=== PATIENT | female | born 1935 | race Caucasian/White ===

== ENCOUNTER 2020-10-20 17:41 | Inpatient (IN) | payer MEDICARE, BC, SELFPAY ==
--- NOTE | ~2020-10-20 | XR_ITS ---
EXAMINATION: XR chest 1V portable EXAM DATE: 10/23/2020 05:45 INDICATION: F/U on atelectasis TECHNIQUE: Portable AP frontal chest x-ray was obtained. Comparison is made to prior examination from 10/21/2020. FINDINGS: Patient has been extubated. The lungs are clear. There are no pleural effusions. The card iomediastinal silhouette is within normal limits. There is no pneumothorax suspected. The bones and soft tissues are unremarkable. Laparotomy theron. IMPRESSION: No acute cardiopulmonary findings. Reviewed, dictated and finalized at location A. ANDRA CONSULTANT
--- NOTE | ~2020-10-20 | CT_ITS ---
EXAMINATION: CT abdomen pelvis wo con DATE: 10/20/2020 20:16 INDICATION: Abdominal pain TECHNIQUE: Computed tomography (CT) of the abdomen and pelvis was performed with 100 mL Omnipaque-350 intravenous contrast. Automated exposure control and iterative reconstruction technique were employe d. The dose-length product was 992.37 mGy-cm. COMPARISON: None FINDINGS: Calcified nodule and associated mild discoid atelectasis at the lingula. Small peripheral groundglass opacity at the dependent right lower lobe which could represent atelectasis, aspiration or pneumonia . Suggestion of scattered mucous plugging in the bilateral lower lobes however determination is somew hat limited by significant respiratory motion. Heart size is normal. Atherosclerotic coronary artery calcific calcification is. No pericardial or pleural effusion. There is small amount of free intraperitoneal gas scattered throughout the abdomen consistent with pe rforated viscus. There is a 7.8 x 5.6 x 2.2 cm loculated fluid collection along the left paracolic gu tter with surrounding inflammatory stranding which is suspicious for a small abscess. The source of t he perforated viscus is unable be definitely identified. There is colonic wall thickening at the sple terrance flexure of the colon suggesting possibility of colitis. There are also multiple diverticula along the sigmoid and descending colon suggesting an additional possibility of perforated diverticulitis. There is fluid throughout multiple loops of nondilated small bowel suggesting a reactive ileus. The a ppendix is not visualized. No pericecal inflammatory change to suggest acute appendicitis. Some of th e free intraperineal gas extends into a small umbilical hernia. There is also a fat-containing spigel sari hernia along the anterolateral right lower quadrant. A few hepatic and splenic calcified calcification is consistent with old granulomatous disease. Gallb ladder, pancreas, bilateral adrenal glands and kidneys are normal. There is scattered calcified ather osclerosis of the aorta and bilateral iliac arteries. Bladder is normal. The uterus is not identified and has likely been surgically resected. Minimal amount of free intraperitoneal fluid in the pelvis. Severe lumbar spondylosis with interspinous process fixation device at L4-L5. There are bridging ost eophytes at multiple levels in the mid to lower thoracic, consistent with diffuse idiopathic skeletal hyperostosis (DISH). IMPRESSION: 1. Free intraperitoneal gas and small likely fluid collection consistent with abscess at the left par acolic gutter suggesting perforated viscus, likely the colon with differential including either perfo rated diverticulitis or focal colitis at the splenic flexure the distribution suggesting possibility of hypotensive ischemia with differential including infection or less likely inflammatory bowel disea se. Dr. Singleton discussed these findings with Dr. Weaver at 8:25 PM. 2. Small peripheral focus of groundglass opacity in the right lower lobe which could be due to pneumo asuncion, atelectasis or less likely aspiration or pulmonary edema. 3. Small umbilical hernia containing gas and fat-containing right-sided spigelian hernia. Reviewed, dictated and finalized at [facility]. PRIVATE DUTY IMPRESSION: 1. Free intraperitoneal gas and small likely fluid collection consistent with a bscess at the left paracolic gutter suggesting perforated viscus, likely the co yovany with differential including either perforated diverticulitis or focal colit is at the splenic flexure the distribution suggesting possibility of hypotensiv e ischemia with differential including infection or less likely inflammatory sergey wel disease. Dr. Singleton discussed these findings with Dr. Weaver at 8:25 PM. 2. Small peripheral focus of
--- NOTE | ~2020-10-20 | US_ITS ---
EXAMINATION: US renal BI DATE: 10/31/2020 10:11 INDICATION: Abnormal kidney function. TECHNIQUE: Multiple ultrasound grayscale images of the kidneys were obtained. COMPARISON: CT abdomen and pelvis 10/20/2020 FINDINGS: The right kidney measures 10.5 x 5.7 x 4.8 cm. The left kidney measures 9.0 x 5.1 x 4.0 cm. The kidne ys demonstrate normal parenchymal echogenicity. There is no hydronephrosis. The bladder is obscured b y bandages. IMPRESSION: 1. Normal kidney sizes. No hydronephrosis. Reviewed, dictated and finalized at location A. D OF EDUCATION SECRETARY
--- NOTE | ~2020-10-20 | XR_ITS ---
EXAMINATION: XR chest ET placement DATE: 10/21/2020 00:57 INDICATION: Intubation. TECHNIQUE: A single frontal view of the chest was obtained. COMPARISON: Chest single view 04/20/2019, CT abdomen and pelvis 10/20/2020 FINDINGS: There is mild atelectasis at left lung base. No pleural effusion or pneumothorax. The heart size is normal. The endotracheal tube tip is 2.5 cm above the jina. The nasogastric tube tip is in the stomach. There are old healed right rib fractures. IMPRESSION: 1. Mild atelectasis at left lung base. Reviewed, dictated and finalized at location A. MOLDER
--- NOTE | ~2020-10-20 | XR_ITS ---
EXAMINATION: XR chest 1V portable DATE: 10/28/2020 09:36 INDICATION: Dyspnea. TECHNIQUE: A single frontal view of the chest was obtained. COMPARISON: Chest single view 10/23/2020, CT abdomen and pelvis 10/20/2020 FINDINGS: There is mild atelectasis in left lower lung zone. No pleural effusion or pneumothorax. The heart size is normal. The nasogastric tube tip is in the stomach. Abdominal skin theron are noted. There are old healed right rib fractures. IMPRESSION: 1. Mild atelectasis in left lower lung zone. Reviewed, dictated and finalized at location A. R AND PULP MILL OPERATOR
--- NOTE | ~2020-10-20 | CT_ITS ---
EXAMINATION: CT abdomen pelvis wo con EXAM DATE: 10/31/2020 13:40 INDICATION: Leukocytosis, fever, post-op Tavo's. TECHNIQUE: Spiral CT of the abdomen and pelvis was performed without contrast. Axial, coronal and s agittal images were reviewed. The dose-length product (DLP) for this examination was 1404.00 mGy-cm. The exposure was tailored according to patient size (auto mA exposure control), and iterative recon struction (ASIR) was used as additional dose reduction technique. There is no prior study for compar selvin. FINDINGS: Interval laparotomy, partial colectomy, Tavo's pouch. Some diverticula along remaining portion of the sigmoid colon. There is a pelvic surgical drain. Scattered foci of gas within the mese ntery in the left side of the abdomen, could be residual postoperative given surgery. Previously seen more diffuse peritoneal gas has resolved. No gas within the liver, no portal venous gas suspected. No organized abscess. The liver, spleen, adrenal glands and pancreas are unremarkable. Gallbladder sludge or poorly calcif ied cholelithiasis. There is no nephrolithiasis or hydronephrosis. The uterus is not identified an d has likely been surgically resected. Vaughn catheter in position with some gas in the bladder. The re is no retroperitoneal or pelvic lymphadenopathy. There is moderate scattered arteriosclerotic di sease. There is a nasogastric tube in position. There is a right common femoral venous line. There is an os katarzyna. No free intraperitoneal gas. The heart is normal in size. There are no pericardial or pleu ral effusions. The interventricular septum is perceptible, suggesting patient is anemic. The lung b ases are unremarkable. There are no osteoblastic or osteolytic lesions identified. IMPRESSION: 1. Interval laparotomy, resolution of diffuse intraperitoneal gas. Scattered foci of uncontained gas within left side of the mesentery. No drainable abscess. 2. Possible cholelithiasis. Reviewed, dictated and finalized at location A. EMS CONSULTANT IMPRESSION: 1. Interval laparotomy, resolution of diffuse intraperitoneal gas. Scattered f oci of uncontained gas within left side of the mesentery. No drainable abscess. 2. Possible cholelithiasis.
--- NOTE | ~2020-10-20 | US_ITS ---
EXAMINATION: US venous doppler LE EXAM DATE: 10/31/2020 10:10 INDICATION: Edema. TECHNIQUE: Multiple grayscale, color flow and Doppler images of the lower extremity deep venous syste ms bilaterally were obtained and reviewed. There is no prior study for comparison. FINDINGS: Right side: The right common femoral, femoral and profunda veins demonstrate normal color flow, respi ratory variation, augmentation and compressibility. Compressibility, color flow confirmed within the right popliteal, posterior tibial, peroneal, and greater saphenous veins. Left side: The left common femoral, femoral and profunda veins demonstrate normal color flow, respira tory variation, augmentation and compressibility. Compressibility, color flow confirmed within the l eft popliteal, posterior tibial, peroneal, and greater saphenous veins. IMPRESSION: 1. No lower extremity deep venous thrombosis bilaterally. Reviewed, dictated and finalized at location A. NG END TRIMMER
--- NOTE | ~2020-10-20 | XR_ITS ---
EXAMINATION: XR Abdomen PICC DATE: 10/28/2020 15:26 INDICATION: PICC line placement TECHNIQUE: Portable AP supine view of the abdomen and pelvis was obtained COMPARISON: CT dated 10/20/2020 FINDINGS: Right lower limb peripherally inserted central venous catheter (PICC) tip at the confluence of the r ight common iliac vein and the caudal-most inferior vena cava. Surgical drain extends into the pelvis and then cephalad with distal tip at the lateral aspect of the left lower quadrant of the abdomen. N asogastric tube tip in proximal side port in the body of the stomach. Multiple skin theron along the midline of the abdomen and pelvis. No dilated loops of bowel to suggest obstruction. IMPRESSION: 1. Right lower limb PICC line with tip at the junction of the right common iliac vein and caudal-most inferior vena cava. Reviewed, dictated and finalized at location A. ED CLOTH TAPER IMPRESSION: 1. Right lower limb PICC line with tip at the junction of the right common ion c vein and caudal-most inferior vena cava.
--- NOTE | ~2020-10-20 | XR_ITS ---
XR abdomen NG/feed tube insert DATE: 10/27/2020 10:35 INDICATION: NG tube placement TECHNIQUE: Portable supine AP view on 10/27/2020 at 1031 hours COMPARISON: 10/20/[address] abdomen FINDINGS: NG tube overlies the distal body of the stomach. Skin theron overlie the right mid and lower abdomen. A catheter overlies the rectum, sigmoid and descending colon. No bowel obstruction is evident. Status post inter-spinous process fixation at L4-5. Degenerative changes of the thoracic and lumbar s pine. Moderate osteopenia. IMPRESSION: NG tube tip at distal body of stomach Catheter overlying left colon Postoperative change Reviewed, dictated and finalized at Location A. Reviewed, dictated and finalized at location A. L OR MOTEL MANAGER
[2020-10-20 18:03] VITALS: BP 102/42; PULSE 58; RESP 18; O2SAT 95
--- NOTE | 2020-10-20 18:39 | PC.NURSE ---
Pt is difficult IV stick. RN at bedside for attempt at ultrasound guided IV placement.
[2020-10-20 18:40] VITALS: BP 102/47; PULSE 60; RESP 18; O2SAT 97
[2020-10-20] MEDS: SODIUM CHLORIDE 0.9% IV 1,000 ML 500 ML IV CONT (18:48)
[2020-10-20] MEDS: MORPHINE SULFATE (*CRX) 2 MG/ML INJ IV PUSH (18:49)
[2020-10-20] MEDS: ONDANSETRON INJ 4 MG/2 ML VIAL IV PUSH (18:49)
--- NOTE | 2020-10-20 19:10 | ED.ABDPAIN ---
HPI - Abdominal Pain General Chief Complaint: Abdominal Pain Stated Complaint: high blood sugar, covid + Time Seen by Provider: 10/20/20 18:08 Source: EMS Mode of arrival: EMS Limitations: dementia History of Present Illness HPI narrative: 85 years old, long-term, brought to the emergency room by ambulance complaining of abdominal pain for the last 2 to 3 days, also history of constipation, last bowel movement over 1 month ago. Covid positive October 11 Related Data Home Medications Medication Instructions Recorded Confirmed amlodipine 10/20/20 Allergies Allergy/AdvReac Type Severity Reaction Status Date / Time Aminoglycosides Allergy Unknown Unknown Verified 10/20/20 18:10 vancomycin Allergy Unknown Unknown Verified 10/20/20 18:10 NKFA Allergy Unknown Unknown Uncoded 10/20/20 18:10 Review of Systems Review of Systems: ROS unobtainable: Yes unobtainable due to medical condition and unobtainable due to mental status PMFSH Past Medical History Medical History (Updated 10/20/20 @ 21:37 by Dillon Weaver MD) A-fib COVID-19 Diabetes mellitus, new onset Hypertension Kidney failure Family History Family History (Updated 04/21/19 @ 11:13 by DOCTOR UNKNOWN) Other Diabetes mellitus Family history of arthritis Family history of malignant neoplasm Hypertension Social History Social History Smoking status: Never smoker Alcohol intake: current Exam Narrative: Exam Narrative: General appearance: Well-developed, well-nourished Skin: Normal color Head: Normocephalic, nontraumatic Eyes: Clear conjunctiva ENT: Oropharynx normal, ears normal, nose normal Neck: Supple, nontender Chest and respiratory: Airway patent, no respiratory distress, no accessory muscle use Heart: Regular rate/rhythm Abdomen: Diffusely tender, distended, diffusely tender Vascular: Normal peripheral pulses, normal capillary refill. 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 Jennings Date: 10/20/20 Time: 21:38 Vital Signs Vital signs: Vital Signs Pulse Rate 58 L 10/20/20 18:03 Respiratory Rate 18 10/20/20 18:03 Blood Pressure 102/42 L 10/20/20 18:03 Pulse Oximetry 95 10/20/20 18:03 Pulse Rate 60 10/20/20 18:40 Respiratory Rate 18 10/20/20 18:40 Blood Pressure 102/47 L 10/20/20 18:40 Pulse Oximetry 97 10/20/20 18:40 MDM - Abdominal Pain MDM Narrative Medical decision making narrative: Patient presents with abdominal pain, constipation. My differential diagnosis as below. Labs, urinalysis, IV fluid, CT abdomen and pelvis with IV contrast ordered. Further plan to follow Differential Diagnosis Differential diagnosis: Likely abdominal pain, acute appendicitis, constipation, diverticulitis, pancreatitis and small bowel obstruction Critical Care Time Critical Care Time Critical Care Time: Yes Total Critical Care Time: 50 Discharge Plan Discharge Clinical Impression: Perforation of colon Acute renal failure Qualifiers: Acute renal failure type: unspecified Qualified Code(s): N17.9 - Acute kidney failure, unspecified Urinary tract infection Qualifiers: Urinary tract infection type: site unspecified Hematuria presence: without hematuria Qualified Code(s): N39.0 - Urinary tract infection, site not specified Patient Disposition: Still a Patient Condition: Guarded Prognosis Additional Instructions: Admit to surgery, Dr. Jennings. Prescriptions: No Action amlodipine 5 mg tablet RF: 0 Follow
[2020-10-20 19:21] LABS: Basophils Percent Auto 0.2 % (0.2-1.2); Eosinophils Absolute Auto 0.1 K/mm3 (0-0.3); Eosinophils Percent Auto 0.4 % (0-4.4); Hematocrit 34.1 % (37.0-47.0); Hemoglobin 10.9 g/dL (12.0-15.0); Immature Granulocyte Absolute 0.11 K/mm3 (0.00-0.031); Immature Granulocyte Percent A 0.7 % (0-0.5); Lymphocytes Absolute Auto 1.07 K/mm3 (0.9-3.2); Lymphocytes Percent Auto 6.7 % (18.3-44.2); Mean Corpuscular Hemoglobin 29.2 pg (26-34); Mean Corpuscular Volume 91.4 fl (80-100); Mean Platelet Volume 10.8 fl (7.4-10.4); Monocytes Absolute Auto 0.6 K/mm3 (0.1-0.6); Monocytes Percent Auto 3.6 % (2.6-8.5); Neutrophils Absolute Auto 14.2 K/mm3 (1.3-6.7); Neutrophils Percent Auto 88.4 % (45.5-73.1); Platelet Count Result 365 k/mm3 (150-375); Red Blood Count 3.73 M/mm3 (4.2-5.4); Red Cell Distribution Width 13.2 % (11.5-14.5); White Blood Count 16.1 K/mm3 (4.5-10.0)
[2020-10-20 19:28] LABS: Add Urine Microscopic? YES; Appearance Urine Turbid (Clear); Bacteria Urine 4+ /hpf; Bilirubin Urine Negative (Negative); Blood Urine 2+ (Negative); Color Urine Yellow (Yellow); Glucose Urine UA Negative (Negative); Ketones Urine Negative (Negative); Leukocyte Esterase Ur 3+ LEU/UL (Negative); Mucus Urine Rare /lpf; Nitrate Urine Negative (Negative); Protein Urine 2+ mg/dL (Negative); RBC Urine >75 /hpf (0-2); Specific Grav Ur 1.015 (1.001-1.035); Urobilinogen Urine Negative mg/dL (<2.0); WBC Clumps Urine Present /HPF; WBC Urine >75 /hpf
[2020-10-20 19:34] LABS: Alanine Aminotransferase 18 U/L (4-35); Albumin Level 3.5 g/dL (3.5-5.1); Alkaline Phosphatase 85 U/L (38-126); Anion Gap 11 mmol/L (8-16); Aspartate Amino Transferase 35 U/L (14-36); Bilirubin,Total 0.5 mg/dL (0.2-1.3); Calcium 9.4 mg/dL (8.4-10.2); Carbon Dioxide 31 mmol/L (22-30); Chloride 98 mmol/L (98-107); Estimated CRCL calculation 9 ml/min; Estimated Glomerular Filt Rate 10; Glucose 191 mg/dL (65-105); Lipase 42 U/L (23-300); Sodium 140 mmol/L (137-145)
[2020-10-20 19:49] LABS: Blood Urea Nitrogen 127 mg/dL (7-17)
[2020-10-20 20:52] LABS: Erythrocyte Sedimentation Rate > 140 mm/hr (0-20)
[2020-10-20 20:55] VITALS: BP 96/67; PULSE 61; RESP 18; O2SAT 60
--- NOTE | 2020-10-20 21:31 | PM.CNGS ---
Assessment and Plan Assessment and plan (1) Perforation of colon: Code(s): K63.1 - Perforation of intestine (nontraumatic) Status: Acute Assessment and Plan: long d/w pt and son, pt verbalizes desire to be comfortable and does not want to proceed c major surgery, son wants to d/w mother prior to making final decision (2) Acute renal failure: Qualifiers: Acute renal failure type: unspecified Qualified Code(s): N17.9 - Acute kidney failure, unspecified Code(s): N17.9 - Acute kidney failure, unspecified Status: Acute Assessment and Plan: cont hydration (3) Urinary tract infection: Qualifiers: Hematuria presence: without hematuria Urinary tract infection type: site unspecified Qualified Code(s): N39.0 - Urinary tract infection, site not specified Code(s): N39.0 - Urinary tract infection, site not specified Status: Acute Assessment and Plan: abx (4) COVID-19: Code(s): U07.1 - COVID-19 Status: Inactive Assessment and Plan: supportive care History of Present Illness Consult details Consult date: 10/20/20 Reason for consult: abdominal pain Requesting physician: Dillon Weaver MD Narrative: Pt is a 85 y/o F c multiple med issues including dementia presenting to the ED c/o severe abd pain. Pt is a poor historian so it is very difficult to attain history. Pt is a resident of an [facility]. Pt reports h/o constipation and reports last BM was 1 mo ago. Review of Systems Review of Systems: ROS unobtainable: Yes unobtainable due to medical condition and unobtainable due to mental status PMFSH Past Medical History Medical History A-fib COVID-19 Diabetes mellitus, new onset Hypertension Kidney failure Family History Family History Other Diabetes mellitus Family history of arthritis Family history of malignant neoplasm Hypertension Social History Social History Smoking status: Never smoker Alcohol intake: current Comments surgical history - lower midline scar noted but no surgical history per pt Meds Home Medications and Allergies Home Medications Medication Instructions Recorded Confirmed Type amlodipine 10/20/20 History Allergies Allergy/AdvReac Type Severity Reaction Status Date / Time Aminoglycosides Allergy Unknown Unknown Verified 10/20/20 18:10 vancomycin Allergy Unknown Unknown Verified 10/20/20 18:10 NKFA Allergy Unknown Unknown Uncoded 10/20/20 18:10 Vital Signs Vital Signs - 24 hr 10/20/20 18:03 10/20/20 18:40 10/20/20 20:55 Pulse Rate 58 L 60 61 Respiratory Rate 18 18 18 Blood Pressure 102/42 L 102/47 L 96/67 L Pulse Oximetry 95 97 60 L Exam Const: General: acute distress moderate, confusion, ill appearing and lethargic Nutritional Appearance: overweight Orientation/consciousness: oriented to person Limitations: altered mental status HENMT: Head: normal to inspection, normocephalic and atraumatic Ears: hearing grossly normal bilaterally General nose exam: Normal external nose present Mouth: Yes dry mucous membranes Eyes: General: appearance normal, both eyes and all related structures Pupils: Equal, round and reactive pupils present EOM: EOMs intact bilaterally Neck: Neck: normal visual inspection and no lymphadenopathy Resp: Effort & Inspection: abnormal respiratory pattern Auscultation: diminished lung sounds Cardio: Jugular venous distension: no JVD Rate: regular rate Rhythm: regular rhythm GI: Inspection: distended, incision and obesity GI Palp: Yes abdominal tenderness, Yes Firmness to palpation present (GI), Yes Tenderness to palpation present (GI), Yes Guarding due to palpation present (GI), Yes Rigid due to palpation and No Hernia present Skin: General skin exam: normal color and no rashes o
--- NOTE | 2020-10-20 22:15 | WPDHPUPDATE1 ---
History and Physical Update Update Date/Time: 10/20/20 22:15 History and Physical has been reviewed, including an updated exam of the patient. There are NO changes in the patient's condition. Risks, benefits, and alternatives have been discussed and questions answered. Patient agrees to proceed with procedure. After discussion with son they have decided to proceed c surgery.
[2020-10-20 22:18] VITALS: BMI 29.3
--- NOTE | 2020-10-20 22:23 | WPDANESEPPF ---
Anes - Initial Pre Proc Eval Procedure: Operation Date: 10/20/20 22:25 Proposed Procedures p Exploratory Laparotomy, Pos Bowel Resec - Swati Jennings MD Date/Time: 10/20/20 22:23 Pre Op Diagnosis: high blood sugar, covid + Patient Data Age: 85 Gender: F Height: 5 ft 2 in Weight: 80 kg Last Vital Signs Pulse 61 10/20/20 20:55 Resp 18 10/20/20 20:55 BP 96/67 L 10/20/20 20:55 Pulse Ox 60 L 10/20/20 20:55 Allergies Allergy/AdvReac Type Severity Reaction Status Date / Time Aminoglycosides Allergy Unknown Unknown Verified 10/20/20 18:10 vancomycin Allergy Unknown Unknown Verified 10/20/20 18:10 NKFA Allergy Unknown Unknown Uncoded 10/20/20 18:10 Home Medications Medication Instructions Recorded Confirmed Type amlodipine 10/20/20 History Laboratory Tests 10/20/20 10/20/20 10/20/20 19:10 19:11 19:11 WBC 16.1 K/mm3 H K/mm3 (4.5-10.0) RBC 3.73 M/mm3 L M/mm3 (4.2-5.4) Hgb 10.9 g/dL L g/dL (12.0-15.0) Hct 34.1 % L % (37.0-47.0) MCV 91.4 fl fl (80-100) MCH 29.2 pg pg (26-34) MCHC 32.0 g/dl g/dl (32-36) RDW 13.2 % % (11.5-14.5) Plt Count 365 k/mm3 k/mm3 (150-375) MPV 10.8 fl H fl (7.4-10.4) Immature Gran % (Auto) 0.7 % H % (0-0.5) Neut % (Auto) 88.4 % H % (45.5-73.1) Lymph % (Auto) 6.7 % L % (18.3-44.2) Andrews % (Auto) 3.6 % % (2.6-8.5) Eos % (Auto) 0.4 % % (0-4.4) Baso % (Auto) 0.2 % % (0.2-1.2) Lymph # (Auto) 1.07 K/mm3 K/mm3 (0.9-3.2) Andrews # (Auto) 0.6 K/mm3 K/mm3 (0.1-0.6) Eos # (Auto) 0.1 K/mm3 K/mm3 (0-0.3) Baso # (Auto) 0.0 K/mm3 K/mm3 (0.0-0.1) Abs Immat Gran (auto) 0.11 K/mm3 H K/mm3 (0.00-0.031) Absolute Neuts (auto) 14.2 K/mm3 H K/mm3 (1.3-6.7) Absolute Nucleated RBC 0.0 K/mm3 K/mm3 (0.0-0.012) Nucleated RBC % 0.0 % % (0.0-0.2) ESR > 140 mm/hr H mm/hr (0-20) Sodium 140 mmol/L mmol/L (137-145) Potassium 5.0 mmol/L mmol/L (3.4-5.0) Chloride 98 mmol/L mmol/L (98-107) Carbon Dioxide 31 mmol/L H mmol/L (22-30) Anion Gap 11 mmol/L mmol/L (8-16) BUN 127 mg/dL H mg/dL (7-17) Creatinine 4.20 mg/dL H mg/dL (0.7-1.0) Estim Creat Clear Calc 9 ml/min ml/min Estimated GFR 10 L (59 - ) Glucose 191 mg/dL H mg/dL (65-105) Calcium 9.4 mg/dL mg/dL (8.4-10.2) Total Bilirubin 0.5 mg/dL mg/dL (0.2-1.3) AST 35 U/L U/L (14-36) ALT 18 U/L U/L (4-35) Alkaline Phosphatase 85 U/L U/L (38-126) Total Protein 7.0 g/dL g/dL (6.3-8.2) Albumin 3.5 g/dL g/dL (3.5-5.1) Lipase 42 U/L U/L (23-300) Urine Color Urine Appearance Urine pH Ur Specific [place] Urine Protein Urine Glucose (UA) Urine Ketones Ur Blood (Man) Urine Nitrate Urine Bilirubin Urine Urobilinogen Leukocyte Esterase Rfl Urine RBC Urine WBC Urine WBC Clumps Urine Bacteria Urine Mucus 10/20/20 19:11 WBC RBC Hgb Hct MCV MCH MCHC RDW Plt Count MPV Immature Gran % (Auto) Neut % (Auto) Lymph % (Auto) Andrews % (Auto) Eos % (Auto) Baso % (Auto) Lymph # (Auto) Andrews # (Auto) Eos # (Auto) Baso # (Auto) Abs Immat Gran (auto) Absolute Neuts (auto) Absolute Nucleated RBC Nucleated RBC % ESR Sodium Potassium Chloride Carbon Dioxide Anion Gap BUN Creatin
[2020-10-20 22:27] VITALS: BP 104/55; PULSE 62; RESP 20; O2SAT 94
[2020-10-20 22:31] VITALS: BP 98/60
[2020-10-21] VITALS (24 sets, daily range): BP systolic 99–125; BP diastolic 44–58; PULSE 52–64; RESP 14–20; TEMP 35.3–37.4; O2SAT 98–100; BMI 29.3
--- NOTE | 2020-10-21 00:01 | PM.PROC ---
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 After adequate induction of general anesthesia the patient was prepped and draped in the normal sterile fashion. A time-out was then done to verify the patient's identity as well as the procedure being performed. I then made a generous midline incision. Noted in the lower portion of the patient's abdomen was a previous hernia repair including mesh in this area. Upon entering the abdominal cavity, there was a gush of air. Upon examining the abdomen especially near the splenic flexure in the left colon there was a large amount of purulence fluid noted. An extensive washout was done at this point. Once this washout was complete, I was able to identify a large amount of inflammation in the left colon. This included the sigmoid colon as well as the distal descending colon. The area of the splenic flexure was also very inflamed and edematous. Given this I did an extensive lysis of adhesions to free up the left colon from its lateral attachments by taking down the white line of Toldt. I also went ahead and mobilized the splenic flexure. Once this was achieved, it was noted that the patient had evidence of acute diverticulitis in the sigmoid colon as well as the distal descending colon. I went ahead and transected the distal sigmoid colon at the peritoneal reflection by creating a window between the mesentery in the distal sigmoid. Once this was done I was able to get a contour stapler and transected this distal sigmoid. I then used a LigaSure device to come up the mesentery staying close to the colon. Went ahead and took the mesentery to just past the splenic flexure. I then went ahead and transected the colon with a 75 JULIO CESAR at this point. This was noted to be likely distal transverse colon. I and prepared the distal transverse colon for creation of a end colostomy. Once done, I made an incision in the skin in the left mid abdomen. This incision was carried down through the subcutaneous tissue to the level of the fascia. I then made a cruciate incision in the level of the fascia. The rectus was split in the direction of its fibers and I final entered the abdominal cavity through the posterior fascia. I was then able to bring up the distal transverse colon through this site. I then copiously irrigated the abdominal cavity. A 15 Japanese drain was left in the left pericolic gutter. No other obvious pathology was seen. I then closed the fascia with looped PDS suture x2. The skin was then closed with skin theron. I then matured the colostomy in the left mid abdomen using interrupted 3 0 Vicryl sutures. The patient tolerated the procedure relatively well and will be left intubated. She will be sent to ICU in critical condition. Anesthesia: GETA Surgeon: Swati Jennings MD Estimated blood loss (mL): 25 Drains: Yes Packing: No Pathology: yes Complications: No immediate complications Condition: critical Disposition: ICU Findings: Perforated diverticulitis in distal descending and proximal sigmoid colon, intra-abdominal abscess
--- NOTE | 2020-10-21 00:30 | ADMGEN ---
This patient, Vanessa Rush, was admitted to Intensive Care Unit-1. Patient/family oriented to hospital policies and general routines including ID bracelet, bed and alarms, visiting hours, pain management, procedures, bathroom and other care routines, personal items, smoking policy, room service/diet, and visiting hours. Information on how to activate the Rapid Response Team has been discussed. Patient/Family are encouraged to report perceived risks to care and to ask questions if they do not understand what they are told or what they should do.
[2020-10-21] MEDS: SODIUM CHLORIDE 0.9% IV 1,000 ML 100 ML IV CONT ×2 (01:00→10:51)
[2020-10-21] MEDS: FENTANYL 2,500MCG/NS250ML(*CRX 2,500 MCG/250 ML BAG IV CONT (01:00)
[2020-10-21 04:10] LABS: Alveolar/Arterial O2 Gradient 137.9 mmHg; Base Excess ABG -3.1 mEq/l (+/-2.0); HCO3 ABG 21.3 mEq/l (22.0-26.0); Oxygen Saturation ABG 98.4 % (95.0-100.0); Oxyhemoglobin 95.7 % THb (90.0-100.0); PCO2 ABG 36.6 mmHg (35.0-45.0); PO2 ABG 122.6 mmHg (80.0-100.0); Total Hemoglobin 15.5 g/dL (12.0-18.0); pH ABG 7.383 (7.350-7.450)
[2020-10-21 04:11] LABS: Carboxyhemoglobin 2.1 % THb (0-2.0); Device VENTILATOR; Fractional Inspired Oxygen 40 %; Methemoglobin ABG 0.3 %THb (0-1.5); Modified Allen's Test Pass; PO2 FiO2 Ratio Arterial Blood 3.07 %; Reduced Hemoglobin 1.9 %THb (0-5.0); Site Drawn LEFT RADIAL
[2020-10-21 04:12] LABS: Arterial Blood Gas PEEP 5 cmH2O; Arterial Blood Gas Vent Mode ASSIST CONTROL; Arterial Blood Gas Ventilator rate 16 /MIN
[2020-10-21 04:13] LABS: Arterial Blood Gas Tidal Volume 300 ml
[2020-10-21 05:24] LABS: Basophils Percent Auto 0.3 % (0.2-1.2); Eosinophils Percent Auto 0.1 % (0-4.4); Hematocrit 33.6 % (37.0-47.0); Hemoglobin 10.8 g/dL (12.0-15.0); Immature Granulocyte Absolute 0.06 K/mm3 (0.00-0.031); Immature Granulocyte Percent A 0.6 % (0-0.5); Lymphocytes Absolute Auto 0.51 K/mm3 (0.9-3.2); Lymphocytes Percent Auto 5.1 % (18.3-44.2); Mean Corpuscular HGB Conc 32.1 g/dl (32-36); Mean Corpuscular Hemoglobin 28.6 pg (26-34); Mean Corpuscular Volume 89.1 fl (80-100); Mean Platelet Volume 10.9 fl (7.4-10.4); Monocytes Absolute Auto 0.4 K/mm3 (0.1-0.6); Monocytes Percent Auto 3.8 % (2.6-8.5); Neutrophils Absolute Auto 8.9 K/mm3 (1.3-6.7); Neutrophils Percent Auto 90.1 % (45.5-73.1); Platelet Count Result 386 k/mm3 (150-375); Red Blood Count 3.77 M/mm3 (4.2-5.4); Red Cell Distribution Width 13.4 % (11.5-14.5); White Blood Count 9.9 K/mm3 (4.5-10.0)
[2020-10-21 05:39] LABS: Anion Gap 14 mmol/L (8-16); Blood Urea Nitrogen 118 mg/dL (7-17); Calcium 8.6 mg/dL (8.4-10.2); Carbon Dioxide 21 mmol/L (22-30); Chloride 104 mmol/L (98-107); Estimated CRCL calculation 11 ml/min; Estimated Glomerular Filt Rate 12; Glucose 278 mg/dL (65-105); Sodium 139 mmol/L (137-145)
--- NOTE | 2020-10-21 09:05 | PM.PNGS ---
Progress Note: A&P Assessment and Plan (1) Perforation of sigmoid colon due to diverticulitis: Code(s): K57.20 - Diverticulitis of large intestine with perforation and abscess without bleeding Status: Acute Assessment and Plan: s/p Hartmans, cont abx, NPO for now, await ostomy fxn (2) Respiratory failure: Code(s): J96.90 - Respiratory failure, unspecified, unspecified whether with hypoxia or hypercapnia Status: Acute Assessment and Plan: wean vent as roberth (3) Kidney failure: Code(s): N19 - Unspecified kidney failure Status: Inactive Assessment and Plan: cont to follow, improving c resus (4) COVID-19: Code(s): U07.1 - COVID-19 Status: Acute Assessment and Plan: supportive care (5) Sepsis: Code(s): A41.9 - Sepsis, unspecified organism Status: Acute Assessment and Plan: cont abx, WBC normalized, HD stable, source controlled, pt also c noted UTI Subjective Subjective Date/Time Seen: 10/21/20 09:05 no acute issues overnight, vented, sedated Review of Systems Review of Systems: ROS unobtainable: Yes unobtainable due to endotracheal tube Exam Const: General: no acute distress and alert Resp: Effort & Inspection: normal respiratory effort Auscultation: diminished lung sounds Cardio: Rate: regular rate Rhythm: regular rhythm GI: Inspection: normal to inspection GI Palp: Yes abdominal tenderness, Yes Soft to palpation and Yes Tenderness to palpation present (GI) Other: soft, sl dist, ostomy viable Objective Data Vital Signs Vital Signs: Vital Signs - 24 hr 10/20/20 18:03 10/20/20 18:40 10/20/20 20:55 Temperature Pulse Rate 58 L 60 61 Respiratory Rate 18 18 18 Blood Pressure 102/42 L 102/47 L 96/67 L Pulse Oximetry 95 97 60 L 10/20/20 22:27 10/20/20 22:31 10/21/20 00:30 Temperature 35.3 C L Pulse Rate 62 57 L Respiratory Rate 20 16 Blood Pressure 104/55 L 98/60 L 105/54 L Pulse Oximetry 94 100 10/21/20 00:38 10/21/20 01:00 10/21/20 02:00 Temperature 35.7 C L Pulse Rate 57 L 52 L 55 L Respiratory Rate 16 16 Blood Pressure 106/50 L 118/58 L Pulse Oximetry 100 100 100 10/21/20 03:00 10/21/20 04:00 10/21/20 06:00 Temperature 36.0 C L 37.4 C 37.2 C Pulse Rate 55 L 59 L 61 Respiratory Rate 16 16 16 Blood Pressure 99/55 L 107/49 L 108/47 L Pulse Oximetry 100 100 100 10/21/20 07:50 10/21/20 08:00 Temperature 37.1 C Pulse Rate 60 55 L Respiratory Rate 18 Blood Pressure 108/47 L Pulse Oximetry 100 99 Intake/Output Intake/Output: Intake & Output 10/18/20 10/19/20 10/20/20 10/21/20 23:59 23:59 23:59 23:59 Intake Total 1050 Output Total 500 350 Balance 550 -350 Meds/Results Medications: Active Medications Generic Name Dose Route Start Last Admin Trade Name Freq PRN Reason Stop Dose Admin Enoxaparin Sodium 40 mg 10/21/20 09:00 Enoxaparin 40 Mg/0.4 Ml Syringe SUB-Q DAILY ALONSO Piperacillin Sod/Tazobactam Sod 2.25 gm in 50 mls @ 100 mls/hr 10/21/20 05:00 10/21/20 08:26 Zosyn 2.25 Gm/D5w 50 Ml IVPB 100 mls/hr Q8H ALONSO Administration Fentanyl Citrate 2,500 mcg in 250 mls @ 5 mls/hr 10/21/20 03:45 10/21/20 01:00 Fentanyl 2,500 Mcg/Ns 250 Ml IV CONT 50 mcg/hr .Q50H ALONSO 5 mls/hr Administration Protocol 50 MCG/HR Sodium Chloride 1,000 mls @ 100 mls/hr 10/21/20 03:50 10/21/20 01:00 Normal Saline Iv IV CONT 100 mls/hr .Q10H ALONSO Administration Lorazepam 2 mg 10/21/20 03:46 Lorazepam Inj (*Crx) 2 Mg/Ml Vial IV PUSH Q2H PRN Anxiety Morphine Sulfate 2 mg 10/20/20 23:58 Morphine Sulfate (*Crx) 2 Mg/Ml Inj IV PUSH Q2H PRN Pain Rated 4-6 Multi-Ingred Cream/Lotion/Oil/Oint 1 applic 10/21/20 09:00 Mineral Oil/Petrolatum,White 1 Applic EACH EYE Q12HR ALONSO Naloxone HCl 0.1 mg 10/20/20 23:58 Naloxone Hcl 0.4 Mg/Ml Vial IV PUSH Q2M PRN Opiate Reversal Ond
[2020-10-21] MEDS: ENOXAPARIN 40 MG/0.4 ML SYRINGE SUB-Q (10:51)
[2020-10-21 11:18] LABS: Glucose Point of Care 311 (65-105)
[2020-10-21] MEDS: PANTOPRAZOLE SODIUM IV 40 MG VIAL IV PUSH (11:20)
[2020-10-21] MEDS: INSULIN ASPART (*BKC) 100 UNITS/ML SUB-Q ×3 (11:20→22:18)
--- NOTE | 2020-10-21 11:51 | WPDCNINT ---
Assessment and Plan Assessment and plan (1) Respiratory failure: Code(s): J96.90 - Respiratory failure, unspecified, unspecified whether with hypoxia or hypercapnia Status: Acute Assessment and Plan: postop respiratory failure - patient currently on 30% FiO2, CMV mode of ventilation - will discontinue all sedation and place patient on SBT and evaluate for extubation - once patient is extubated will encourage incentive spirometry and probably up in chair at some point if okay with surgery (2) Perforation of sigmoid colon due to diverticulitis: Code(s): K57.20 - Diverticulitis of large intestine with perforation and abscess without bleeding Status: Acute Assessment and Plan: status post Perforated sigmoid colon, diverticulitis status post ex lap, extensive lysis of adhesions, 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 on 10/21/2020 - surgery following the patient - will continue adequate pain control (3) COVID-19: Code(s): U07.1 - COVID-19 Status: Acute Assessment and Plan: patient positive for COVID-19 at the detention on 10/11/2020 - continue airborne, droplet, contact isolation /precautions (4) Sepsis: Code(s): A41.9 - Sepsis, unspecified organism Status: Acute Assessment and Plan: patient with perforated sigmoid colon, leukocytosis is improved - continue Zosyn - patient with acute kidney injury, creatinine trending down with fluids - urine output has been adequate, will continue monitor with renal function and urine output (5) DVT prophylaxis: Code(s): Z29.9 - Encounter for prophylactic measures, unspecified Status: Acute Assessment and Plan: Lovenox (6) Acute kidney injury: Code(s): N17.9 - Acute kidney failure, unspecified Status: Acute Assessment and Plan: acute kidney injury most likely related to the perforated viscus, severe sepsis - continue maintenance IV fluids, creatinine trending down - continue monitor renal function, electrolytes and urine output 6 (7) Diabetes: Code(s): E11.9 - Type 2 diabetes mellitus without complications Status: Acute Assessment and Plan: patient hyperglycemic will start patient on Accu-Cheks on high-dose sliding scale insulin - patient on Lantus at the detention - if blood sugars remain elevated will restart patient on a small dose of Lantus as she is currently NPO Additional Plan will discuss with family and updated them with patient's condition and plan of care code status: Full code critical care time spent: 43 minutes Due to a high probability of clinically significant, life threatening deterioration, the patient required my highest level of preparedness to intervene emergently and I personally spent this critical care time directly and personally managing the patient. This critical care time included obtaining a history; examining the patient; pulse oximetry; ordering and review of studies; arranging urgent treatment with development of a management plan; evaluation of patient's response to treatment; frequent reassessment; and discussions with other providers. It was exclusive of separately billable procedures and treating other patients and teaching time. Please see Assessment and Plan section and the rest of the note for further information on patient assessment and treatment [employer] Consult Note Consult date: 10/21/20 Time Seen: 07:04 Reason for consult: Perforated sigmoid colon, diverticulitis status post ex lap, extensive lysis of adhesions, 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 on 10/21/2020 HPI: Vanessa Rush is a 85 year old female past medical of diabetes, hypertension, renal insufficiency, atrial fibrillation, COVID-19 19 positive on 10/11/2020 at the detention, presented the ED via EMS with complains of abdominal pain for the last 2-3 days. Patient also had some complain of constipation with last bowel m
[2020-10-21 11:53] LABS: Alveolar/Arterial O2 Gradient 86.8 mmHg; Base Excess ABG -4.9 mEq/l (+/-2.0); Carboxyhemoglobin 0.8 % THb (0-2.0); Fractional Inspired Oxygen 30 %; HCO3 ABG 19.5 mEq/l (22.0-26.0); Methemoglobin ABG 0.3 %THb (0-1.5); Oxygen Content ABG 15.2 %vol (16.0-22.0); Oxygen Saturation ABG 96.6 % (95.0-100.0); Oxyhemoglobin 94.8 % THb (90.0-100.0); PCO2 ABG 33.8 mmHg (35.0-45.0); PO2 ABG 87.4 mmHg (80.0-100.0); PO2 FiO2 Ratio Arterial Blood 2.91 %; Reduced Hemoglobin 4.1 %THb (0-5.0); Total Hemoglobin 11.3 g/dL (12.0-18.0); pH ABG 7.378 (7.350-7.450)
[2020-10-21 11:54] LABS: Modified Allen's Test Pass; Site Drawn RIGHT RADIAL
[2020-10-21 11:55] LABS: Arterial Blood Gas PEEP 5 cmH2O; Arterial Blood Gas Vent Mode SPONTANEOUS; Device VENTILATOR
[2020-10-21 11:56] LABS: Arterial Blood Gas Pressure Support 8 cmH2O
--- NOTE | 2020-10-21 17:14 | WPDANESPN ---
Anes - Prog Note Post-Op Date/Time: 10/21/20 17:14 Cardiovascular status: normal Respiratory status: normal Airway patency: baseline Mental status: baseline Post-Op hydration status: normal Vital Signs: Last Vital Signs Temp 36.9 C 10/21/20 16:00 Pulse 63 10/21/20 16:00 Resp 16 10/21/20 16:00 BP 125/47 L 10/21/20 16:00 Pulse Ox 100 10/21/20 16:00 Pain Score (VAS): 0 I/O: Intake & Output 10/21/20 10/21/20 10/21/20 07:59 15:59 23:59 Intake Total 1100 Output Total 350 465 Balance -350 1100 -465 Laboratory Tests 10/21/20 04:58 10/21/20 04:58 10/20/20 10/20/20 10/20/20 19:10 19:11 19:11 WBC 16.1 H RBC 3.73 L Hgb 10.9 L Hct 34.1 L MCV 91.4 MCH 29.2 MCHC 32.0 RDW 13.2 Plt Count 365 MPV 10.8 H Immature Gran % (Auto) 0.7 H Neut % (Auto) 88.4 H Lymph % (Auto) 6.7 L [place] % (Auto) 3.6 Eos % (Auto) 0.4 Baso % (Auto) 0.2 Lymph # (Auto) 1.07 [place] # (Auto) 0.6 Eos # (Auto) 0.1 Baso # (Auto) 0.0 Abs Immat Gran (auto) 0.11 H Absolute Neuts (auto) 14.2 H Absolute Nucleated RBC 0.0 Nucleated RBC % 0.0 ESR > 140 H Puncture Site ABG pH ABG pCO2 ABG pO2 ABG PO2/FiO2 Ratio ABG HCO3 ABG O2 Saturation ABG O2 Content ABG Base Excess A-a Gradient Oxyhemoglobin Carboxyhemoglobin Methemoglobin Reduced Hemoglobin Total Hemoglobin O2 Delivery Device O2 Liters/Min Minute Volume Vent Rate Vent Mode FiO2 Tidal Volume PEEP Peak Inspir Pressure Pressure Support Sodium 140 Potassium 5.0 Chloride 98 Carbon Dioxide 31 H Anion Gap 11 BUN 127 H Creatinine 4.20 H Estim Creat Clear Calc 9 Estimated GFR 10 L Glucose 191 H POC Capillary Glucose Calcium 9.4 Total Bilirubin 0.5 AST 35 ALT 18 Alkaline Phosphatase 85 Total Protein 7.0 Albumin 3.5 Lipase 42 Urine Color Urine Appearance Urine pH Ur Specific [place] Urine Protein Urine Glucose (UA) Urine Ketones Ur Blood (Man) Urine Nitrate Urine Bilirubin Urine Urobilinogen Leukocyte Esterase Rfl Urine RBC Urine WBC Urine WBC Clumps Urine Bacteria Urine Mucus 10/20/20 10/21/20 10/21/20 19:11 02:12 04:58 WBC 9.9 RBC 3.77 L Hgb 10.8 L Hct 33.6 L MCV 89.1 MCH 28.6 MCHC 32.1 RDW 13.4 Plt Count 386 H MPV 10.9 H Immature Gran % (Auto) 0.6 H Neut % (Auto) 90.1 H Lymph % (Auto) 5.1 L [place] % (Auto) 3.8 Eos % (Auto) 0.1 Baso % (Auto) 0.3 Lymph # (Auto) 0.51 L [place] # (Auto) 0.4 Eos # (Auto) 0.0 Baso # (Auto) 0.0 Abs Immat Gran (auto) 0.06 H Absolute Neuts (auto) 8.9 H Absolute Nucleated RBC 0.0 Nucleated RBC % 0.0 ESR Puncture Site Left radial ABG pH 7.383 ABG pCO2 36.6 ABG pO2 122.6 H ABG PO2/FiO2 Ratio 3.07 ABG HCO3 21.3 L ABG O2 Saturation 98.4 ABG O2 Content 21.0 ABG Base Excess -3.1 A-a Gradient 137.9 Oxyhemoglobin 95.7 Carboxyhemoglobin 2.1 H Methemoglobin 0.3 Reduced Hemoglobin 1.9 Total Hemoglobin 15.5 O2 Delivery Device Ventilator O2 Liters/Min Not Reportable Minute Volume Not Reportable Vent Rate 16 Vent Mode Assist control FiO2 40 Tidal Volume 300 PEEP 5 Peak Inspir Pressure Not Reportable Pressure Support Not Reportable Sodium Potassium Chloride Carbon Dioxide Anion Gap BUN Creatinine Estim Creat Clear Calc Estimated GFR Glucose POC Capillary Glucose Calcium Total Bilirubin AST ALT Alkaline Phosphatase Total Protein Albumin Lipase Urine Color Yellow Urine Appearance Turbid H Urine pH 5.0 Ur Specific [place] 1.015 Urine Protein 2+ H Urine Glucose (UA) Negative Urine Ketones Negative Ur Blood (Man) 2+ H U
[2020-10-21 17:37] LABS: Glucose Point of Care 293 (65-105)
--- NOTE | 2020-10-21 18:08 | PC.NURSE ---
This patient, Vanessa Rush, was received from ICU 1 on 10/21/20 at 1809. Patient/family oriented to unit policies and routines
--- NOTE | 2020-10-21 18:10 | PC.NURSE ---
This patient, Vanessa Rush, was transferred to [3 med surg 306 ] on 10/21/20 at 1810. Personal belongings sent with patient. Report given to [ rn]. Appropriate documentation sent with patient.
[2020-10-21 22:18] LABS: Glucose Point of Care 306 (65-105)
[2020-10-22] VITALS (7 sets, daily range): BP systolic 100–138; BP diastolic 43–55; PULSE 59–70; RESP 16–20; TEMP 36.3–37.3; O2SAT 94–100
[2020-10-22 05:09] LABS: Alveolar/Arterial O2 Gradient 72.7 mmHg; Base Excess ABG -3.9 mEq/l (+/-2.0); Carboxyhemoglobin 0.7 % THb (0-2.0); Fractional Inspired Oxygen 28 %; HCO3 ABG 20.7 mEq/l (22.0-26.0); Oxygen Content ABG 10.9 %vol (16.0-22.0); Oxygen Saturation ABG 96.4 % (95.0-100.0); Oxyhemoglobin 95.7 % THb (90.0-100.0); PCO2 ABG 35.2 mmHg (35.0-45.0); PO2 ABG 85.4 mmHg (80.0-100.0); PO2 FiO2 Ratio Arterial Blood 3.05 %; Reduced Hemoglobin 3.6 %THb (0-5.0); pH ABG 7.387 (7.350-7.450)
[2020-10-22 05:14] LABS: Device NASAL CANNULA; Modified Allen's Test Pass; Site Drawn LEFT RADIAL
[2020-10-22] MEDS: INSULIN ASPART (*BKC) 100 UNITS/ML SUB-Q ×4 (06:09→22:05)
[2020-10-22 06:36] LABS: Basophils Percent Auto 0.3 % (0.2-1.2); Hematocrit 28.5 % (37.0-47.0); Hemoglobin 9.1 g/dL (12.0-15.0); Immature Granulocyte Absolute 0.17 K/mm3 (0.00-0.031); Immature Granulocyte Percent A 1.2 % (0-0.5); Lymphocytes Percent Auto 5.7 % (18.3-44.2); Mean Corpuscular HGB Conc 31.9 g/dl (32-36); Mean Corpuscular Hemoglobin 29.1 pg (26-34); Mean Corpuscular Volume 91.1 fl (80-100); Mean Platelet Volume 10.9 fl (7.4-10.4); Monocytes Absolute Auto 0.6 K/mm3 (0.1-0.6); Neutrophils Absolute Auto 12.5 K/mm3 (1.3-6.7); Neutrophils Percent Auto 88.8 % (45.5-73.1); Platelet Count Result 404 k/mm3 (150-375); Red Blood Count 3.13 M/mm3 (4.2-5.4); Red Cell Distribution Width 13.9 % (11.5-14.5); White Blood Count 14.1 K/mm3 (4.5-10.0)
[2020-10-22 06:48] LABS: Glucose Point of Care 290 (65-105)
[2020-10-22 07:14] LABS: Anion Gap 9 mmol/L (8-16); Calcium 8.5 mg/dL (8.4-10.2); Carbon Dioxide 24 mmol/L (22-30); Chloride 109 mmol/L (98-107); Estimated CRCL calculation 12 ml/min; Estimated Glomerular Filt Rate 13; Glucose 319 mg/dL (65-105); Magnesium 3.2 mg/dL (1.6-2.3); Phosphorus 5.7 mg/dL (2.5-4.5); Sodium 142 mmol/L (137-145)
[2020-10-22 07:21] LABS: Blood Urea Nitrogen 124 mg/dL (7-17)
[2020-10-22] MEDS: SODIUM CHLORIDE 0.9% IV 1,000 ML 100 ML IV CONT (07:54)
[2020-10-22] MEDS: ENOXAPARIN 40 MG/0.4 ML SYRINGE SUB-Q (10:21)
[2020-10-22] MEDS: PANTOPRAZOLE SODIUM IV 40 MG VIAL IV PUSH (10:21)
--- NOTE | 2020-10-22 12:26 | PM.PNGS ---
Progress Note: A&P Assessment and Plan (1) Perforation of sigmoid colon due to diverticulitis: Code(s): K57.20 - Diverticulitis of large intestine with perforation and abscess without bleeding Status: Acute Assessment and Plan: Improving postop day 2. Patient now extubated and on supplemental oxygen. Still has some abdominal pain but this is improving. Will plan to continue current regimen and begin clear liquids if patient is able to swallow well. Will begin getting patient out of bed. (2) Diabetes: Code(s): E11.9 - Type 2 diabetes mellitus without complications Status: Acute (3) Acute kidney injury: Onset Date: Unknown Code(s): N17.9 - Acute kidney failure, unspecified Status: Acute Assessment and Plan: Continue IV fluid resuscitation as these are quite high. (jorge BUN) (4) Sepsis: Onset Date: ~10/2020 Code(s): A41.9 - Sepsis, unspecified organism Status: Acute Assessment and Plan: On IV antibiotics. I had purulent peritonitis but also has a UTI. (5) COVID-19: Code(s): U07.1 - COVID-19 Status: Acute (6) UTI due to extended-spectrum beta lactamase (ESBL) producing Escherichia coli: Onset Date: Unknown Code(s): N39.0 - Urinary tract infection, site not specified; B96.29 - Other Escherichia coli [E. coli] as the cause of diseases classified elsewhere; Z16.12 - Extended spectrum beta lactamase (ESBL) resistance Status: Acute Assessment and Plan: Sensitivities reported and this is sensitive to Zosyn, which she is on. Subjective Subjective Date/Time Seen: 10/22/20 16:26 Patient extubated last night and transferred to a regular floor on telemetry breathing on her own without significant problems. She is still on supplemental oxygen and does not complain of a cough today. Nurse reports she is not complaining of any shortness of breath. She did complain of some abdominal pain a few hours back and the nurse gave her some morphine which seemed to work well for her. Post Op day: 2 Patient reports: still having pain Interval history: Nurses do not report any bowel movement yet. Ostomy bag has no gas or stool in it . Review of Systems Constitutional: Constitutional: Reports no additional constitutional complaints ENT: Reports other (Mucous Membranes moist.) Cardiovascular: Cardiovascular: Denies dyspnea Respiratory: Respiratory: Denies cough, Denies pain on inspiration and Denies dyspnea Gastrointestinal: Gastrointestinal: Reports as per HPI, Denies nausea and Denies vomiting Musculoskeletal: Musculoskeletal: Reports other (No calf swelling or edema) Integumentary/Breasts: Skin/Breast: Reports system reviewed and no additional complaints, except as docu Exam Const: General: cooperative, no acute distress, alert and awake Orientation/consciousness: patient oriented x3 HENMT: Mouth: Yes moist mucous membranes Neck: Neck: normal visual inspection Chest: Chest palpation & inspection: normal inspection of the chest Resp: Effort & Inspection: normal respiratory effort Auscultation: clear to auscultation bilaterally Cardio: Jugular venous distension: no JVD Rate: regular rate Rhythm: regular rhythm GI: Auscultation: Hypoactive bowel sounds present Rectal Exam: deferred Other: Ostomy in left abdomen is dark purple but appears viable. Ostomy bag has no gas or stool in it . Incision is dressed and with minor serosanguineous drainage. Neuro: General: patient oriented x3 and moves all extremities Speech: normal speech Extrem: General: normal exam except as noted Psych: Mental Status: mental status grossly normal Speech and movement: Normal speech and movement present Affect: normal affect Thought content: Yes Normal thought content present Objective Data Vital Signs Vital Signs: Vital Signs - 24 hr 10/21/20 12:33 10/21/20 13:00 10/21/20 13:15 Temperature 37.3 C Pulse Rate
[2020-10-22] MEDS: MORPHINE SULFATE (*CRX) 2 MG/ML INJ IV PUSH ×2 (15:29→22:56)
[2020-10-22] MEDS: SODIUM CHLORIDE 0.9% IV 1,000 ML 130 ML IV CONT (18:24)
[2020-10-22 20:41] LABS: Glucose Point of Care 320 (65-105)
[2020-10-22 20:42] LABS: Glucose Point of Care 265 (65-105)
[2020-10-22 22:13] LABS: Glucose Point of Care 277 (65-105)
[2020-10-23] VITALS: BP 135/53; PULSE 66; PULSE 67; RESP 20; TEMP 36.8; O2SAT 100
[2020-10-23 04:00] VITALS: BP 138/61; PULSE 71; PULSE 75; RESP 20; TEMP 36.7; O2SAT 100
[2020-10-23] MEDS: SODIUM CHLORIDE 0.9% IV 1,000 ML 130 ML IV CONT ×2 (04:53→17:22)
[2020-10-23] MEDS: INSULIN ASPART (*BKC) 100 UNITS/ML SUB-Q ×4 (04:54→23:58)
[2020-10-23 07:18] LABS: Basophils Percent Auto 0.2 % (0.2-1.2); Eosinophils Percent Auto 0.1 % (0-4.4); Hematocrit 31.6 % (37.0-47.0); Hemoglobin 9.8 g/dL (12.0-15.0); Immature Granulocyte Absolute 0.19 K/mm3 (0.00-0.031); Immature Granulocyte Percent A 1.4 % (0-0.5); Lymphocytes Absolute Auto 0.87 K/mm3 (0.9-3.2); Lymphocytes Percent Auto 6.5 % (18.3-44.2); Mean Corpuscular Hemoglobin 29.3 pg (26-34); Mean Corpuscular Volume 94.3 fl (80-100); Mean Platelet Volume 10.8 fl (7.4-10.4); Monocytes Absolute Auto 0.5 K/mm3 (0.1-0.6); Monocytes Percent Auto 3.4 % (2.6-8.5); Neutrophils Absolute Auto 11.9 K/mm3 (1.3-6.7); Neutrophils Percent Auto 88.4 % (45.5-73.1); Platelet Count Result 430 k/mm3 (150-375); Red Blood Count 3.35 M/mm3 (4.2-5.4); Red Cell Distribution Width 14.2 % (11.5-14.5); White Blood Count 13.5 K/mm3 (4.5-10.0)
[2020-10-23 07:44] LABS: Anion Gap 10 mmol/L (8-16); Blood Urea Nitrogen 108 mg/dL (7-17); Calcium 8.6 mg/dL (8.4-10.2); Carbon Dioxide 23 mmol/L (22-30); Chloride 117 mmol/L (98-107); Estimated CRCL calculation 15 ml/min; Estimated Glomerular Filt Rate 17; Glucose 303 mg/dL (65-105); Potassium 4.6 mmol/L (3.4-5.0); Sodium 150 mmol/L (137-145)
[2020-10-23 08:00] VITALS: BP 125/68; PULSE 61; PULSE 63; PULSE 71; RESP 18; RESP 20; TEMP 36.1; O2SAT 100
[2020-10-23] MEDS: PANTOPRAZOLE SODIUM IV 40 MG VIAL IV PUSH (08:25)
[2020-10-23] MEDS: ENOXAPARIN 40 MG/0.4 ML SYRINGE SUB-Q (08:25)
[2020-10-23 09:26] LABS: Glucose Point of Care 278 (65-105)
[2020-10-23 12:00] VITALS: BP 114/55; PULSE 66; PULSE 68; RESP 16; TEMP 36.2; O2SAT 100
[2020-10-23 12:58] LABS: Glucose Point of Care 309 (65-105)
--- NOTE | 2020-10-23 15:15 | PM.PNGS ---
Progress Note: A&P Assessment and Plan (1) Perforation of sigmoid colon due to diverticulitis: Code(s): K57.20 - Diverticulitis of large intestine with perforation and abscess without bleeding Status: Acute Assessment and Plan: Improving postop day 3. BUN and creatinine slightly improved --continue IV fluids Patient now extubated and off supplemental oxygen. Chest x-ray today unremarkable. Still has some abdominal pain but this is improving. Will plan to continue current regimen and begin clear liquids if patient is able to swallow well. I asked patient if she would like to try liquids and she did not answer well today. Will begin getting patient out of bed into a chair. Continue working with OT PT. Consider bedside swallow tomorrow morning and start pushing clear liquids if she passes the test. (2) Diabetes: Code(s): E11.9 - Type 2 diabetes mellitus without complications Status: Acute (3) Acute kidney injury: Onset Date: Unknown Code(s): N17.9 - Acute kidney failure, unspecified Status: Acute Assessment and Plan: Continue IV fluid resuscitation as these are quite high but improving. (jorge BUN) May need to consider peripheral or central Clindamax starting tomorrow if patient does not begin tolerating more orally. (4) Sepsis: Onset Date: ~10/2020 Code(s): A41.9 - Sepsis, unspecified organism Status: Acute Assessment and Plan: On IV antibiotics. She had purulent peritonitis but also has a UTI. (5) COVID-19: Code(s): U07.1 - COVID-19 Status: Acute Assessment and Plan: No fever or other obvious symptoms of this at this time. (6) UTI due to extended-spectrum beta lactamase (ESBL) producing Escherichia coli: Onset Date: Unknown Code(s): N39.0 - Urinary tract infection, site not specified; B96.29 - Other Escherichia coli [E. coli] as the cause of diseases classified elsewhere; Z16.12 - Extended spectrum beta lactamase (ESBL) resistance Status: Acute Assessment and Plan: Sensitivities reported and this is sensitive to Zosyn, which she is on. Subjective Subjective Date/Time Seen: 10/23/20 15:15 Post Op day: 3 (Stable and extubated status post laparotomy) Interval history: Patient is sleeping when I entered the room. Not able to communicate well how she is doing. Seems to mumble yes or no. Review of Systems Review of Systems: ROS unobtainable: Yes unobtainable due to endotracheal tube, unobtainable due to medical condition and unobtainable due to mental status Exam Const: General: cooperative, no acute distress, alert, awake, acute distress moderate, confusion, ill appearing and lethargic Nutritional Appearance: overweight Orientation/consciousness: oriented to person, patient oriented x3, confusion and lethargic Limitations: altered mental status HENMT: Head: normal to inspection, normocephalic and atraumatic Ears: hearing grossly normal bilaterally General nose exam: Normal external nose present Mouth: Yes moist mucous membranes and Yes dry mucous membranes Eyes: General: appearance normal, both eyes and all related structures Pupils: Equal, round and reactive pupils present EOM: EOMs intact bilaterally Neck: Neck: normal visual inspection and no lymphadenopathy Chest: Chest palpation & inspection: normal inspection of the chest Resp: Effort & Inspection: normal respiratory effort and abnormal respiratory pattern Auscultation: clear to auscultation bilaterally and diminished lung sounds Cardio: Jugular venous distension: no JVD Rate: regular rate Rhythm: regular rhythm GI: Inspection: normal to inspection, incision (Covered with gauze and Tegaderm with minor serosanguineous drainage) and obesity Auscultation: Hypoactive bowel sounds present Rectal Exam: deferred Other: Ostomy in left abdomen is dark purple but appears viable. Ostomy bag has no gas or stool in it . Since she had bow
[2020-10-23 16:00] VITALS: BP 121/52; PULSE 61; PULSE 63; RESP 20; TEMP 36.1; O2SAT 100
[2020-10-23 17:52] LABS: Glucose Point of Care 347 (65-105)
[2020-10-23 20:00] VITALS: BP 135/45; PULSE 64; PULSE 66; RESP 16; TEMP 36.3; O2SAT 100
[2020-10-23 23:56] LABS: Glucose Point of Care 287 (65-105)
[2020-10-24] VITALS (10 sets, daily range): BP systolic 141–154; BP diastolic 48–57; PULSE 60–75; RESP 16–20; TEMP 36.2–38.2; O2SAT 92–100
[2020-10-24] MEDS: SODIUM CHLORIDE 0.9% IV 1,000 ML 130 ML IV CONT ×3 (00:58→16:46)
[2020-10-24] MEDS: INSULIN ASPART (*BKC) 100 UNITS/ML SUB-Q ×3 (05:55→18:06)
[2020-10-24 06:06] LABS: Glucose Point of Care 308 (65-105)
--- NOTE | 2020-10-24 07:34 | PM.PNGS ---
Progress Note: A&P Assessment and Plan (1) Perforation of sigmoid colon due to diverticulitis: Code(s): K57.20 - Diverticulitis of large intestine with perforation and abscess without bleeding Status: Acute Assessment and Plan: await ostomy fxn, swallow today, encourage OOB/IS (2) COVID-19: Code(s): U07.1 - COVID-19 Status: Acute Assessment and Plan: supportive care Subjective Subjective Date/Time Seen: 10/24/20 07:34 feels ok, confused, wants to drink Review of Systems Review of Systems: ROS unobtainable: Yes unobtainable due to mental status Exam Const: General: no acute distress and confusion Resp: Effort & Inspection: normal respiratory effort Auscultation: diminished lung sounds Cardio: Rate: regular rate Rhythm: regular rhythm GI: Inspection: distended and incision GI Palp: Yes Soft to palpation, Yes Tenderness to palpation present (GI) and No Guarding due to palpation present (GI) Other: ostomy - viable, sweat Objective Data Vital Signs Vital Signs: Vital Signs - 24 hr 10/23/20 08:00 10/23/20 12:00 10/23/20 16:00 Temperature 36.1 C L 36.2 C L 36.1 C L Pulse Rate 61 66 61 Respiratory Rate 18 16 20 Blood Pressure 125/68 114/55 L 121/52 L Pulse Oximetry 100 100 100 10/23/20 20:00 10/24/20 00:00 10/24/20 04:00 Temperature 36.3 C L 36.2 C L 36.4 C L Pulse Rate 64 69 66 Respiratory Rate 16 20 20 Blood Pressure 135/45 L 141/57 H 141/50 H Pulse Oximetry 100 100 100 Intake/Output Intake/Output: Intake & Output 10/21/20 10/22/20 10/23/20 10/24/20 23:59 23:59 23:59 23:59 Intake Total 1185 2180 3730 1000 Output Total 815 1780 2500 1310 Balance 651 076 7803 -310 Meds/Results Medications: Active Medications Generic Name Dose Route Start Last Admin Trade Name Freq PRN Reason Stop Dose Admin Dextrose 12.5 gm 10/21/20 10:28 Dextrose 50% 25 Gm/50 Ml Syringe IV PUSH PRN PRN Hypoglycemia Protocol Enoxaparin Sodium 40 mg 10/21/20 09:00 10/23/20 08:25 Enoxaparin 40 Mg/0.4 Ml Syringe SUB-Q 40 mg DAILY ALONSO Administration Glucagon 1 mg 10/21/20 10:28 Glucagon For Inj 1 Mg Vial IM PRN PRN Hypoglycemia Protocol Glucose 15 gm 10/21/20 10:28 Glucose Oral Gel 15 Gm Of Glucse In 37.5 Gm Tube PO PRN PRN Hypoglycemia Protocol Piperacillin Sod/Tazobactam Sod 2.25 gm in 50 mls @ 100 mls/hr 10/21/20 05:00 10/24/20 05:52 Zosyn 2.25 Gm/D5w 50 Ml IVPB 100 mls/hr Q8H ALONSO Administration Sodium Chloride 1,000 mls @ 130 mls/hr 10/21/20 03:50 10/24/20 00:58 Normal Saline Iv IV CONT 130 mls/hr .Q7H42M ALONSO Administration Dextrose 1,000 mls @ 100 mls/hr 10/21/20 10:28 Dextrose 5% 1,000 Ml IVPB PRN PRN Hypoglycemia Protocol Insulin Aspart 4 - 8 units 10/22/20 12:00 10/24/20 05:55 Insulin Aspart (*Bkc) 100 Units/Ml SUB-Q 6 units Q6HR ALONSO Administration Protocol Lorazepam 2 mg 10/21/20 03:46 Lorazepam Inj (*Crx) 2 Mg/Ml Vial IV PUSH Q2H PRN Anxiety Morphine Sulfate 2 mg 10/20/20 23:58 10/22/20 22:56 Morphine Sulfate (*Crx) 2 Mg/Ml Inj IV PUSH 2 mg Q2H PRN Administration Pain Rated 4-6 Multi-Ingred Cream/Lotion/Oil/Oint 1 applic 10/21/20 09:00 10/24/20 04:13 Mineral Oil/Petrolatum,White 1 Applic EACH EYE 1 applic Q12HR ALONSO Administration Naloxone HCl 0.1 mg 10/20/20 23:58 Naloxone Hcl 0.4 Mg/Ml Vial IV PUSH Q2M PRN Opiate Reversal Ondansetron HCl 4 mg 10/20/20 23:58 Ondansetron Inj 4 Mg/2 Ml Vial IV PUSH Q4H PRN Nausea And Vomiting Pantoprazole Sodium 40 mg 10/21/20 09:00 10/23/20 08:25 Pantoprazole Sodium Iv 40 Mg Vial IV PUSH 40 mg QAM ALONSO Administration Radiology Results: ITS Impressions Abdomen/Pelvis CT 10/20/20 20:17 IMPRESSION: 1. Free intraperitoneal gas and small likely fluid collection consistent with abscess at the left paracolic gutt
[2020-10-24] MEDS: ENOXAPARIN 40 MG/0.4 ML SYRINGE SUB-Q (09:18)
[2020-10-24] MEDS: PANTOPRAZOLE SODIUM IV 40 MG VIAL IV PUSH (09:18)
--- NOTE | 2020-10-24 11:39 | PCNFU ---
Nutrition Follow-Up Complete: Inadequate oral intake related to oral intubation as evidenced by NPO status. Goal: Patient to meet estimated nutritional needs. Limited progress towards goal. We will continue current goal. Pt current nutrition is NPOx4. Nutrition recommendation: advance as tolerated or PPN Last recorded weight is 84 kg, up from 82.4 kg. Bowel Motility:No BM, hypoactive bowel sounds. Labs Reviewed:Glu 303,BUN 108,Cr 2.7,Na 150 Meds Noted:Protonix,NS 1000 ml at 30 ml/hr, Protonix,NovoLog,Lovenox. Additional Notes: Nutrition follow up today. Spoke with nursing due to COVID precautions. Patient has colostomy-Surgery 10/20. Recommend starting PPN if patient remains NPO greater than day 7. Following: Follow up in 3 days.
[2020-10-24 12:13] LABS: Glucose Point of Care 300 (65-105)
--- NOTE | 2020-10-24 12:32 | PCSTNOTE ---
Please refer to the Bedside Swallow Evaluation in the EMR. Please note, silent aspiration cannot be ruled out at bedside.
[2020-10-24] MEDS: ACETAMINOPHEN 325 MG TABLET 650 MG PO (14:20)
[2020-10-24 18:30] LABS: Glucose Point of Care 303 (65-105)
[2020-10-25] VITALS (7 sets, daily range): BP systolic 152–163; BP diastolic 37–95; PULSE 56–79; RESP 16–20; TEMP 36.8–37.5; O2SAT 95–100
[2020-10-25 00:23] LABS: Glucose Point of Care 295 (65-105)
[2020-10-25] MEDS: INSULIN ASPART (*BKC) 100 UNITS/ML SUB-Q ×5 (01:56→23:44)
[2020-10-25] MEDS: SODIUM CHLORIDE 0.9% IV 1,000 ML 130 ML IV CONT (01:57)
[2020-10-25 06:13] LABS: Glucose Point of Care 297 (65-105)
[2020-10-25 07:05] LABS: Hematocrit 29.2 % (37.0-47.0); Hemoglobin 8.6 g/dL (12.0-15.0); Mean Corpuscular HGB Conc 29.5 g/dl (32-36); Mean Corpuscular Hemoglobin 28.6 pg (26-34); Mean Platelet Volume 10.8 fl (7.4-10.4); Platelet Count Result 450 k/mm3 (150-375); Red Blood Count 3.01 M/mm3 (4.2-5.4); Red Cell Distribution Width 14.7 % (11.5-14.5); White Blood Count 9.6 K/mm3 (4.5-10.0)
[2020-10-25 07:24] LABS: Anion Gap 8 mmol/L (8-16); Blood Urea Nitrogen 77 mg/dL (7-17); Calcium 8.2 mg/dL (8.4-10.2); Carbon Dioxide 21 mmol/L (22-30); Chloride 135 mmol/L (98-107); Estimated CRCL calculation 21 ml/min; Estimated Glomerular Filt Rate 25; Glucose 316 mg/dL (65-105); Potassium 4.1 mmol/L (3.4-5.0); Sodium 164 mmol/L (137-145)
[2020-10-25] MEDS: DEXTROSE 5%/0.45% SOD CHL 1,000 ML 100 ML IV CONT (10:11)
[2020-10-25] MEDS: ENOXAPARIN 40 MG/0.4 ML SYRINGE SUB-Q (10:11)
[2020-10-25] MEDS: PANTOPRAZOLE SODIUM IV 40 MG VIAL IV PUSH (10:11)
--- NOTE | 2020-10-25 12:19 | PCPTNOTE ---
Attempted therapy session. Pt stated I hurt! over and over while attempting to explain exercises to Pt. Assisted Pt with cleaning her R eye due to the eye being crusted over, once cleaned Pt opened eyes once then shut them really tightly. Attempted exercises with Pt again, and Pt resisted all movements. Will continue per POC 10/26/2020.
--- NOTE | 2020-10-25 15:08 | PCSTNOTE ---
Therapist spoke with KAROL Hyde, concerning patient's status today and stated that patient in general has been either unresponsive, complaining of pain, or just saying, Water, water, water but unable to consume when oral presentations are offered. Therapist will not request continuing orders or re-evaluation to determine risk for aspiration currently as it is expected that patient will have great difficulty. Therapist will continue to monitor.
[2020-10-25 18:07] LABS: Glucose Point of Care 342 (65-105)
[2020-10-25 18:07] LABS: Glucose Point of Care 266 (65-105)
[2020-10-25 23:56] LABS: Glucose Point of Care 381 (65-105)
[2020-10-26] VITALS: PULSE 69
[2020-10-26 04:00] VITALS: BP 147/70; PULSE 68; PULSE 70; RESP 20; TEMP 37.2; O2SAT 96
[2020-10-26] MEDS: DEXTROSE 5%/0.45% SOD CHL 1,000 ML 100 ML IV CONT ×2 (05:50→17:39)
[2020-10-26] MEDS: INSULIN ASPART (*BKC) 100 UNITS/ML SUB-Q ×3 (05:53→17:40)
[2020-10-26 06:09] LABS: Glucose Point of Care 341 (65-105)
[2020-10-26 06:57] LABS: Anion Gap 7 mmol/L (8-16); Blood Urea Nitrogen 63 mg/dL (7-17); Calcium 8.2 mg/dL (8.4-10.2); Carbon Dioxide 24 mmol/L (22-30); Chloride 138 mmol/L (98-107); Estimated CRCL calculation 21 ml/min; Estimated Glomerular Filt Rate 25; Glucose 381 mg/dL (65-105); Potassium 3.7 mmol/L (3.4-5.0); Sodium 169 mmol/L (137-145)
[2020-10-26 08:00] VITALS: BP 159/54; PULSE 61; PULSE 68; RESP 16; TEMP 36.6; O2SAT 93
--- NOTE | 2020-10-26 08:32 | PCPTNOTE ---
Dec'd order clarification changed due to pt's decline in ability to participate w/ therapy.
[2020-10-26] MEDS: PANTOPRAZOLE SODIUM IV 40 MG VIAL IV PUSH (09:14)
[2020-10-26] MEDS: ENOXAPARIN 40 MG/0.4 ML SYRINGE SUB-Q (09:14)
[2020-10-26 09:29] LABS: Glucose Point of Care 344 (65-105)
[2020-10-26 11:40] LABS: Glucose Point of Care 383 (65-105)
--- NOTE | 2020-10-26 11:46 | PM.IMCN ---
Assessment and Plan Assessment and plan (1) Hypernatremia: Code(s): E87.0 - Hyperosmolality and hypernatremia Status: Acute Assessment and Plan: -Acute hypernatremia likely secondary to surgery and dehydration -Na 167, acutely from 140 a few days ago. patient is not taking in PO. Likely dehydration with such rapid shift. Free water deficit 6-8L. Will correct with D5W. Will trend needs q.6 hours to prevent rapid shift of sodium. -patient became hyperglycemic, will give D5W at rate of 200 cc/hour on watch sodium closely -nurses note there isn't high output from ostomy. Patient is taking in very little PO. likely dehydration. She otherwise looks euvolemic. Since patient is normotensive will give D5. -checking urine and serum osmolarity, urine sodium -encourage patient to take p.o. water if her mentation improves (2) Altered mental status: Qualifiers: Altered mental status type: stupor Qualified Code(s): R40.1 - Stupor Code(s): R41.82 - Altered mental status, unspecified Status: Acute Assessment and Plan: etiology may be metabolic or infectious, patient had series complications from diverticulitis significant surgery and ICU stay (3) UTI due to extended-spectrum beta lactamase (ESBL) producing Escherichia coli: Onset Date: Unknown Code(s): N39.0 - Urinary tract infection, site not specified; B96.29 - Other Escherichia coli [E. 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 Diabetes mellitus complication status: with kidney complications Diabetes mellitus complication detail: with chronic kidney disease Code(s): E11.9 - Type 2 diabetes mellitus without complications Status: Acute Assessment and Plan: -D5W for free water deficit -restarting home lantus 40u Qhs -high dose sliding scale insulin -hypoglycemia protocol -with significant D5W being administered patient may need lot more insulin (5) Acute kidney injury: Onset Date: Unknown Code(s): N17.9 - Acute kidney failure, unspecified Status: Acute Assessment and Plan: Likely on top of CKD from diabetes (6) Perforation of sigmoid colon due to diverticulitis: Code(s): K57.20 - Diverticulitis of large intestine with perforation and abscess without bleeding Status: Acute Assessment and Plan: Postop day 5 exploratory laparotomy with end colostomy (7) COVID-19: Code(s): U07.1 - COVID-19 Status: Acute Assessment and Plan: -not hypoxic, supportive care (8) DVT prophylaxis: Code(s): Z29.9 - Encounter for prophylactic measures, unspecified Status: Acute Assessment and Plan: Lovenox Additional Plan Diet: Clear liquid Code status: Full code Prognosis guarded HPI Data of Consult Consult date: 10/26/20 Requesting Physician: Swati Jennings MD Primary Care Provider: Daniel Vinson MD Consult Narrative Narrative: Vanessa Rush is a 85 year old female with with past history of hypertension, insulin-dependent diabetes type 2, hyperlipidemia, sigmoid colon diverticulitis with perforation Postop day 5 exploratory laparotomy with left colectomy and end ostomy with intra-abdominal washout. Patient is on antibiotics Zosyn after diverticulitis with spillage into abdominal cavity. Medicine has been consulted for hypernatremia. She was COVID-19 from 10/11/2020. she is extubated on 10/21/2020 evening no problems. She is transferred to floor for further management. Patient started having ostomy output. Her diet has been advanced to clears however she is not drinking much. Patient's sodium was around 142 on 10/22/2020. and then rapidly increased
[2020-10-26 12:00] VITALS: BP 149/57; PULSE 62; PULSE 72; RESP 18; TEMP 36.2; O2SAT 95
[2020-10-26 12:37] LABS: Anion Gap 6 mmol/L (8-16); Blood Urea Nitrogen 60 mg/dL (7-17); Calcium 8.1 mg/dL (8.4-10.2); Carbon Dioxide 23 mmol/L (22-30); Chloride 138 mmol/L (98-107); Estimated CRCL calculation 23 ml/min; Estimated Glomerular Filt Rate 27; Glucose 430 mg/dL (65-105); Potassium 3.5 mmol/L (3.4-5.0); Sodium 167 mmol/L (137-145)
--- NOTE | 2020-10-26 13:06 | PCDIET ---
Nutrition Follow-Up Complete: Nutrition Diagnosis: Inadequate oral intake related to oral intubation as evidenced by NPO status. Nutrition Goal: Patient to meet estimated nutritional needs. Goal not met. Patient unable to participate in swallow evaluation 10/25/20 and has not been taking anything by mouth on nectar thickened, clear liquid diet. If no improvement in the next 24-48 hours and aggressive nutritional therapy is desired, recommend nutrition support. Will follow closely for plan of care and provide recommendations, as needed. Last recorded weight is 84 kg which is increased from last review. +I/O. Bowel Motility: Small stools documented. Labs Reviewed: Glu (430), BUN (60), Cr (1.8), Na (167), Cl (138), Ca (8.1) Meds Noted: Lipitor, D5/0.45NS at 100mL/hr, Novolog, Cozaar, Protonix, Zosyn Additional Notes: Labs slightly improved after IV fluids initiated. Abdomen with incision. No pressure sores. Will continue to monitor with same goal. Nutrition Monitoring and Evaluation: Follow up in 3 days.
--- NOTE | 2020-10-26 14:50 | PM.PNGS ---
Progress Note: A&P Assessment and Plan (1) Perforation of sigmoid colon due to diverticulitis: Code(s): K57.20 - Diverticulitis of large intestine with perforation and abscess without bleeding Status: Acute Assessment and Plan: Ostomy with some dark maroon liquid stool, discussed with Dr. Jennings. She is on a clear liquid nectar thick diet, but due to her mentation, she is unable to eat or take her oral medications. Failed her swallow test. Hospitalist has been consulted, appreciate help. Continue IV Zosyn. WBC normal yesterday, she is afebrile. Will encourage increased activity when patient's mentation improves and she is able to tolerate this. (2) COVID-19: Code(s): U07.1 - COVID-19 Status: Acute Assessment and Plan: Supportive care. Continue isolation. (3) Acute kidney injury: Onset Date: Unknown Code(s): N17.9 - Acute kidney failure, unspecified Status: Acute Assessment and Plan: Creatinine 1.9 this morning. Improving. (4) UTI due to extended-spectrum beta lactamase (ESBL) producing Escherichia coli: Onset Date: Unknown Code(s): N39.0 - Urinary tract infection, site not specified; B96.29 - Other Escherichia coli [E. coli] as the cause of diseases classified elsewhere; Z16.12 - Extended spectrum beta lactamase (ESBL) resistance Status: Acute Assessment and Plan: E.Coli growth in urine culture, sensitive to Zosyn. (5) Diabetes: Code(s): E11.9 - Type 2 diabetes mellitus without complications Status: Acute Assessment and Plan: Glucose in 200-300's and was on dextrose for IV for the hypernatremia. Continue accuchecks and sliding scale. Management per Hospitalist, appreciate consult. (6) Altered mental status: Code(s): R41.82 - Altered mental status, unspecified Status: Acute Assessment and Plan: Could be related to the infection, hypernatremia, etc. Hospitalist consulted this morning, appreciate their input. (7) Hypernatremia: Code(s): E87.0 - Hyperosmolality and hypernatremia Status: Acute Assessment and Plan: Na 169 this morning. Hospitalist consulted and appreciate their help. Additional Plan Discussed the patient's case and plan of care with Dr. Jennings. Subjective Subjective Date/Time Seen: 10/26/20 09:50 Post Op day: 5 (Ex lap, intraabdominal washout, Tavo's procedure) Interval history: Patient lethargic and unable to provide history or ROS. Review of Systems Review of Systems: ROS unobtainable: Yes unobtainable due to mental status Exam Const: General: no acute distress and lethargic Orientation/consciousness: oriented to person, No oriented to place, No oriented to time and lethargic Limitations: altered mental status Other: Patient is able to say her name, but unable to answer other questions or hold a conversation due to lethargy and AMS. Resp: Effort & Inspection: normal respiratory effort and able to speak in complete sentences Auscultation: clear to auscultation bilaterally Cardio: Rate: regular rate Rhythm: regular rhythm GI: Inspection: incision (Midline incision dressing clean and dry) and other (mildly distended) GI Palp: Yes Soft to palpation, Yes Tenderness to palpation present (GI) (diffusely tender), No Guarding due to palpation present (GI) and No Rebound tenderness present Auscultation: Hypoactive bowel sounds present Other: RLQ JAX drain with dark, maroon output. LLQ colostomy with dark maroon liquid stool, stoma retracted. Urinary Catheter: Urinary Catheter: patent and draining Neuro: General: oriented to person, No oriented to place, No oriented to time and confusion Cranial nerves: Yes CN's II-XII intact bilaterally Speech: normal speech Gait exam (Neuro): Unable to assess gait Extrem: General: no clubbing, cyanosis or edema Psych: Insight: Limited insight present (Psych) Judgement: Limited judgement present (Psych) Objective Data Vi
[2020-10-26 16:00] VITALS: BP 149/70; PULSE 60; RESP 18; TEMP 35.9; O2SAT 96
[2020-10-26 19:17] LABS: Glucose Point of Care 375 (65-105)
[2020-10-26 20:00] VITALS: BP 144/75; PULSE 57; PULSE 58; RESP 20; TEMP 37.1; O2SAT 99
[2020-10-26 20:17] LABS: Anion Gap 8 mmol/L (8-16); Blood Urea Nitrogen 59 mg/dL (7-17); Calcium 8.2 mg/dL (8.4-10.2); Carbon Dioxide 22 mmol/L (22-30); Chloride 137 mmol/L (98-107); Estimated CRCL calculation 24 ml/min; Estimated Glomerular Filt Rate 29; Glucose 406 mg/dL (65-105); Potassium 3.7 mmol/L (3.4-5.0); Sodium 167 mmol/L (137-145)
[2020-10-26] MEDS: DEXTROSE 5% 1,000 ML 1,000 ML 200 ML IV CONT (20:54)
[2020-10-26] MEDS: INSULIN GLARGINE (*BKC) 100 UNITS/ML 40 UNITS SUB-Q (20:55)
[2020-10-27] VITALS (9 sets, daily range): BP systolic 124–156; BP diastolic 45–84; PULSE 52–89; RESP 18–20; TEMP 36.2–36.7; O2SAT 90–100
[2020-10-27] MEDS: INSULIN ASPART (*BKC) 100 UNITS/ML SUB-Q ×4 (00:11→19:16)
[2020-10-27 00:19] LABS: Glucose Point of Care 363 (65-105)
[2020-10-27 01:13] LABS: Anion Gap 6 mmol/L (8-16); Blood Urea Nitrogen 54 mg/dL (7-17); Calcium 8.3 mg/dL (8.4-10.2); Carbon Dioxide 25 mmol/L (22-30); Chloride 136 mmol/L (98-107); Estimated CRCL calculation 23 ml/min; Estimated Glomerular Filt Rate 27; Glucose 419 mg/dL (65-105); Potassium 3.3 mmol/L (3.4-5.0); Sodium 167 mmol/L (137-145)
[2020-10-27 02:39] LABS: Add Urine Microscopic? YES; Appearance Urine Cloudy (Clear); Bacteria Urine Trace /hpf; Bilirubin Urine Negative (Negative); Blood Urine 1+ (Negative); Color Urine Yellow (Yellow); Glucose Urine UA 3+ mg/dL (Negative); Ketones Urine Negative (Negative); Leukocyte Esterase Ur Negative LEU/UL (NEGATIVE); Mucus Urine Rare /lpf; Nitrate Urine Negative (Negative); Protein Urine 1+ mg/dL (Negative); Specific Grav Ur 1.016 (1.001-1.035); Squamous Epithelial Cell Urine Rare /hpf (Few); Urobilinogen Urine Negative mg/dL (<2.0)
[2020-10-27] MEDS: DEXTROSE 5% 1,000 ML 1,000 ML 200 ML IV CONT ×2 (03:14→09:58)
[2020-10-27 04:48] LABS: Sodium Urine Random 44 meq/L
[2020-10-27 06:04] LABS: Glucose Point of Care 325 (65-105)
--- NOTE | 2020-10-27 07:29 | PM.IMPN ---
Progress Note: A&P Assessment and Plan (1) Hypernatremia: Code(s): E87.0 - Hyperosmolality and hypernatremia Status: Acute Assessment and Plan: -Acute hypernatremia likely secondary to surgery and dehydration -Na 162, this is an acute hypernatremia from baseline 140. Patient was unable to take p.o. therefore NG tube was placed with free water 200 cc every 4 hours. -IV fluids D5W decreasing rate to 100 cc/hour as patient is starting to get course lung sounds -urine and serum osmolarity pending, urine sodium 44 and euvolemic -encourage patient to take p.o. water if her mentation improves (2) Altered mental status: Qualifiers: Altered mental status type: stupor Qualified Code(s): R40.1 - Stupor Code(s): R41.82 - Altered mental status, unspecified Status: Acute Assessment and Plan: etiology may be metabolic or infectious, patient had series complications from diverticulitis significant surgery and ICU stay (3) UTI due to extended-spectrum beta lactamase (ESBL) producing Escherichia coli: Onset Date: Unknown Code(s): N39.0 - Urinary tract infection, site not specified; B96.29 - Other Escherichia coli [E. 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 Diabetes mellitus type: type 2 Code(s): E11.9 - Type 2 diabetes mellitus without complications Status: Acute Assessment and Plan: -D5W for free water deficit, decreased rate -continue home lantus 40u Qhs -high dose sliding scale insulin -hypoglycemia protocol (5) Acute kidney injury: Onset Date: Unknown Code(s): N17.9 - Acute kidney failure, unspecified Status: Acute Assessment and Plan: Likely on top of CKD from diabetes (6) Perforation of sigmoid colon due to diverticulitis: Code(s): K57.20 - Diverticulitis of large intestine with perforation and abscess without bleeding Status: Acute Assessment and Plan: Postop day 6 exploratory laparotomy with end colostomy (7) COVID-19: Code(s): U07.1 - COVID-19 Status: Acute Assessment and Plan: -not hypoxic, supportive care (8) DVT prophylaxis: Code(s): Z29.9 - Encounter for prophylactic measures, unspecified Status: Acute Assessment and Plan: Lovenox Additional Plan Diet: Tube feeds Glucerna trickle feeds 10 cc/hour, water flush 200 cc every 4 hours IV fluids: D5W was at 200 cc an hour, cut down to 100 cc an hour has now we have started tube feeds, may need to stop altogether if she is becoming fluid overloaded Code status: Full code Prognosis guarded Subjective Date/time seen: 10/27/20 07:29 Patient examined. She still somnolent. She now has NG tube for tube feeds. Starting Glucerna 10 cc/hour trickle feeds, free water flush 200 cc every 4 hours. Dietary consult placed. Sodium has come down to 162, patient still has 4.9 L fluid deficit. Patient's lungs are starting to get course, decrease IV fluids D5W to 100 cc/hour, may need to stop altogether if she becomes fluid overloaded. Will need to correct with p.o. NG tube free water flush. Review of Systems Review of Systems: ROS unobtainable: Yes unobtainable due to medical condition and unobtainable due to mental status Exam Narrative: Exam Narrative: - GENERAL: Somnolent, ill-appearing woman - EYES: EOMI. Anicteric. - HENT: Oral mucosa, NG tube in place - LUNGS: Clear to auscultation bilaterally - CARDIOVASCULAR: Regular rate and rhythm. - ABDOMEN: Soft, nondistended, ostomy with dark output - EXTREMITIES: Peripheral pulses 2+.
[2020-10-27 08:49] LABS: Hematocrit 30.9 % (37.0-47.0); Hemoglobin 8.9 g/dL (12.0-15.0); Mean Corpuscular HGB Conc 28.8 g/dl (32-36); Mean Corpuscular Hemoglobin 28.7 pg (26-34); Mean Corpuscular Volume 99.7 fl (80-100); Mean Platelet Volume 11.2 fl (7.4-10.4); Platelet Count Result 320 k/mm3 (150-375); Red Cell Distribution Width 14.7 % (11.5-14.5); White Blood Count 10.8 K/mm3 (4.5-10.0)
[2020-10-27 09:23] LABS: Alanine Aminotransferase 11 U/L (4-35); Albumin Level 2.2 g/dL (3.5-5.1); Alkaline Phosphatase 73 U/L (38-126); Anion Gap 6 mmol/L (8-16); Aspartate Amino Transferase 17 U/L (14-36); Bilirubin,Total 0.7 mg/dL (0.2-1.3); Blood Urea Nitrogen 50 mg/dL (7-17); Calcium 7.8 mg/dL (8.4-10.2); Carbon Dioxide 22 mmol/L (22-30); Chloride 135 mmol/L (98-107); Estimated CRCL calculation 24 ml/min; Estimated Glomerular Filt Rate 29; Glucose 422 mg/dL (65-105); Potassium 3.2 mmol/L (3.4-5.0); Sodium 163 mmol/L (137-145)
--- NOTE | 2020-10-27 10:00 | PM.PNGS ---
Progress Note: A&P Assessment and Plan (1) Perforation of sigmoid colon due to diverticulitis: Code(s): K57.20 - Diverticulitis of large intestine with perforation and abscess without bleeding Status: Acute Assessment and Plan: still not taking po, will place NG and start TF, nutrition consult, cont clears (2) COVID-19: Code(s): U07.1 - COVID-19 Status: Acute Assessment and Plan: supportive care (3) Hypernatremia: Code(s): E87.0 - Hyperosmolality and hypernatremia Status: Acute Assessment and Plan: management per medicine Subjective Subjective Date/Time Seen: 10/27/20 10:00 no acute changes, still difficult to arose and confused (?baseline) Review of Systems Review of Systems: ROS unobtainable: Yes unobtainable due to mental status Exam Const: Orientation/consciousness: confusion and lethargic Resp: Effort & Inspection: normal respiratory effort Auscultation: diminished lung sounds Cardio: Rate: regular rate Rhythm: regular rhythm GI: Inspection: normal to inspection, non-distended and incision GI Palp: Yes abdominal tenderness and Yes Soft to palpation Other: soft, sl dist, lillie TTP, incision C/D/I, ostomy c some dk output, JAX c s/s output Objective Data Vital Signs Vital Signs: Vital Signs - 24 hr 10/26/20 12:00 10/26/20 16:00 10/26/20 20:00 Temperature 36.2 C L 35.9 C L 37.1 C Pulse Rate 62 60 58 L Respiratory Rate 18 18 20 Blood Pressure 149/57 H 149/70 H 144/75 H Pulse Oximetry 95 96 99 10/27/20 00:00 10/27/20 04:00 10/27/20 08:00 Temperature 36.3 C L 36.7 C 36.3 C L Pulse Rate 61 58 L 89 Respiratory Rate 20 20 20 Blood Pressure 156/84 H 147/45 H 136/59 L Pulse Oximetry 97 98 97 Intake/Output Intake/Output: Intake & Output 10/24/20 10/25/20 10/26/20 10/27/20 23:59 23:59 23:59 23:59 Intake Total 3210 2170 1500 2050 Output Total 2530 1810 1850 700 Balance 680 360 -350 1350 Meds/Results Medications: Active Medications Generic Name Dose Route Start Last Admin Trade Name Freq PRN Reason Stop Dose Admin Acetaminophen 650 mg 10/24/20 13:20 10/24/20 14:20 Acetaminophen 325 Mg Tablet PO 650 mg Q4H PRN Administration Mild Pain (1-3) or Fever Amlodipine Besylate 5 mg 10/26/20 10:20 10/26/20 11:36 Amlodipine Besylate 5 Mg Tablet PO Not Given DAILY ALONSO Atorvastatin Calcium 10 mg 10/26/20 21:00 10/26/20 20:48 Atorvastatin 10 Mg Tablet PO Not Given HS ALONSO Carvedilol 12.5 mg 10/26/20 09:00 10/26/20 20:48 Carvedilol 12.5 Mg Tablet PO Not Given Q12H ALONSO Dextrose 12.5 gm 10/21/20 10:28 Dextrose 50% 25 Gm/50 Ml Syringe IV PUSH PRN PRN Hypoglycemia Protocol Enoxaparin Sodium 40 mg 10/21/20 09:00 10/26/20 09:14 Enoxaparin 40 Mg/0.4 Ml Syringe SUB-Q 40 mg DAILY ALONSO Administration Glucagon 1 mg 10/21/20 10:28 Glucagon For Inj 1 Mg Vial IM PRN PRN Hypoglycemia Protocol Glucose 15 gm 10/21/20 10:28 Glucose Oral Gel 15 Gm Of Glucse In 37.5 Gm Tube PO PRN PRN Hypoglycemia Protocol Piperacillin Sod/Tazobactam Sod 2.25 gm in 50 mls @ 100 mls/hr 10/21/20 05:00 10/27/20 06:26 Zosyn 2.25 Gm/D5w 50 Ml IVPB Infused Q8H ALONSO Infusion Dextrose 1,000 mls @ 100 mls/hr 10/21/20 10:28 Dextrose 5% 1,000 Ml IVPB PRN PRN Hypoglycemia Protocol Dextrose 1,000 mls @ 200 mls/hr 10/26/20 19:30 10/27/20 09:58 Dextrose 5% 1,000 Ml IV CONT 200 mls/hr .Q5H ALONSO Administration Insulin Aspart 4 - 8 units 10/22/20 12:00 10/27/20 05:56 Insulin Aspart (*Bkc) 100 Units/Ml SUB-Q 6 units Q6HR ALONSO Administration Protocol Insulin Glargine 40 units 10/26/20 21:00 10/26/20 20:55 Insulin Glargine (*Bkc) 100 Units/Ml SUB-Q 40 units HS ALONSO Administration Lorazepam 2 mg 10/21/20 03:46 Lorazepam Inj (*Crx) 2 Mg/Ml Vial IV PUSH Q2H PRN Anxiety Losartan Potassium 5
[2020-10-27] MEDS: amLODIPine BESYLATE 5 MG TABLET PO (11:06)
[2020-10-27] MEDS: ENOXAPARIN 40 MG/0.4 ML SYRINGE SUB-Q (11:07)
[2020-10-27] MEDS: carvediloL 12.5 MG TABLET PO ×2 (11:07→21:24)
[2020-10-27] MEDS: PANTOPRAZOLE SODIUM IV 40 MG VIAL IV PUSH (11:08)
[2020-10-27] MEDS: LOSARTAN POTASSIUM 50 MG TABLET PO (11:08)
[2020-10-27 12:42] LABS: Glucose Point of Care 336 (65-105)
[2020-10-27 13:05] LABS: Anion Gap 6 mmol/L (8-16); Blood Urea Nitrogen 48 mg/dL (7-17); Calcium 7.7 mg/dL (8.4-10.2); Carbon Dioxide 25 mmol/L (22-30); Chloride 131 mmol/L (98-107); Estimated CRCL calculation 25 ml/min; Estimated Glomerular Filt Rate 31; Glucose 402 mg/dL (65-105); Potassium 3.4 mmol/L (3.4-5.0); Sodium 162 mmol/L (137-145)
[2020-10-27 17:44] LABS: Anion Gap 2 mmol/L (8-16); Blood Urea Nitrogen 50 mg/dL (7-17); Calcium 7.7 mg/dL (8.4-10.2); Carbon Dioxide 24 mmol/L (22-30); Chloride 134 mmol/L (98-107); Estimated CRCL calculation 25 ml/min; Estimated Glomerular Filt Rate 31; Glucose 359 mg/dL (65-105); Potassium 4.9 mmol/L (3.4-5.0); Sodium 160 mmol/L (137-145)
[2020-10-27 19:21] LABS: Glucose Point of Care 350 (65-105)
[2020-10-27 20:52] LABS: Anion Gap 7 mmol/L (8-16); Blood Urea Nitrogen 58 mg/dL (7-17); Calcium 8.3 mg/dL (8.4-10.2); Carbon Dioxide 17 mmol/L (22-30); Chloride 139 mmol/L (98-107); Estimated CRCL calculation 24 ml/min; Estimated Glomerular Filt Rate 29; Glucose 410 mg/dL (65-105); Potassium 6.3 mmol/L (3.4-5.0); Sodium 163 mmol/L (137-145)
[2020-10-27] MEDS: ATORVASTATIN 10 MG TABLET PO (21:24)
[2020-10-27] MEDS: INSULIN GLARGINE (*BKC) 100 UNITS/ML 40 UNITS SUB-Q (21:24)
--- NOTE | 2020-10-27 22:50 | PC.NURSE ---
This patient, Vanessa Rush, was transferred to [[id number] ]. Personal belongings sent with patient. Report given to [ Candice riggins]. Appropriate documentation sent with patient.
[2020-10-27] MEDS: CALCIUM GLUC 1,000 MG/NS 50 ML 1,000 MG/50 ML BAG 100 MG IVPB (23:46)
[2020-10-27] MEDS: DEXTROSE 50% 25 GM/50 ML SYRINGE IV PUSH (23:47)
[2020-10-27] MEDS: SODIUM BICARBONATE 8.4% 50 MEQ/50 ML VIAL IV PUSH (23:47)
[2020-10-27] MEDS: INSULIN HUMAN REGULAR (*BKC) 100 UNITS/ML 10 UNITS IV PUSH (23:48)
[2020-10-27 23:57] LABS: Glucose Point of Care 360 (65-105)
[2020-10-28] VITALS (10 sets, daily range): BP systolic 109–133; BP diastolic 34–46; PULSE 48–80; RESP 16–20; TEMP 35.8–36.7; O2SAT 94–100
--- NOTE | 2020-10-28 00:29 | PC.NURSE ---
This patient, Vanessa Rush, was received from [ ] on 10/28/20 at appr [id number]. Patient/family oriented to unit policies and routines. Report from Car ROBERSON
[2020-10-28 01:16] LABS: Glucose Point of Care 355 (65-105)
[2020-10-28 01:57] LABS: NT Pro B Type Natriuretic Pept 7420 PG/ML (5-100)
[2020-10-28] MEDS: INSULIN ASPART (*BKC) 100 UNITS/ML SUB-Q ×4 (02:44→17:34)
[2020-10-28] MEDS: DEXTROSE 5% 1,000 ML 1,000 ML 200 ML IV CONT (02:50)
[2020-10-28 03:34] LABS: Anion Gap 6 mmol/L (8-16); Blood Urea Nitrogen 57 mg/dL (7-17); Calcium 8.1 mg/dL (8.4-10.2); Carbon Dioxide 20 mmol/L (22-30); Chloride 133 mmol/L (98-107); Estimated CRCL calculation 25 ml/min; Estimated Glomerular Filt Rate 31; Glucose 384 mg/dL (65-105); Potassium 4.7 mmol/L (3.4-5.0); Sodium 159 mmol/L (137-145)
[2020-10-28 07:09] LABS: Anion Gap 4 mmol/L (8-16); Blood Urea Nitrogen 48 mg/dL (7-17); Carbon Dioxide 25 mmol/L (22-30); Chloride 128 mmol/L (98-107); Estimated CRCL calculation 24 ml/min; Estimated Glomerular Filt Rate 29; Glucose 331 mg/dL (65-105); Potassium 3.4 mmol/L (3.4-5.0); Sodium 157 mmol/L (137-145)
[2020-10-28 07:51] LABS: Glucose Point of Care 343 (65-105)
--- NOTE | 2020-10-28 08:04 | PM.PNGS ---
Progress Note: A&P Assessment and Plan (1) Perforation of sigmoid colon due to diverticulitis: Code(s): K57.20 - Diverticulitis of large intestine with perforation and abscess without bleeding Status: Acute Assessment and Plan: postop day 7. Status post left colectomy and transverse colostomy. Wound looks to be healing adequately with no sign of infection. Colostomy is very dusky but no signs of peritonitis. Not much colostomy output as yet. Continue IV antibiotics. Receiving tube feeds at 20 cc an hour. Mental status slowly room proving. (2) COVID-19: Code(s): U07.1 - COVID-19 Status: Resolved Assessment and Plan: Patient noted to be positive on testing 9 days before she came to the hospital. I discussed with the nursing bleach supervisor whether we could discontinue the respiratory precautions. Patient does not seem to have any symptoms of COVID-19 at this point. (3) Hypernatremia: Code(s): E87.0 - Hyperosmolality and hypernatremia Status: Acute Assessment and Plan: Improving with free water administration. Sodium down to 159 today. This is likely the cause of her mental status changes as well. (4) Altered mental status: Qualifiers: Altered mental status type: stupor Qualified Code(s): R40.1 - Stupor Code(s): R41.82 - Altered mental status, unspecified Status: Acute Assessment and Plan: Combination of sepsis and hypernatremia most likely reasons. May have some metabolic encephalopathy as well. (5) Acute kidney injury: Onset Date: Unknown Code(s): N17.9 - Acute kidney failure, unspecified Status: Acute Assessment and Plan: Improving. Creatinine down to 1.6 today (6) Diabetes: Qualifiers: Diabetes mellitus complication detail: with chronic kidney disease Diabetes mellitus complication status: with kidney complications Diabetes mellitus mcfp insulin use: with terminal operations manager use Diabetes mellitus type: type 2 Code(s): E11.9 - Type 2 diabetes mellitus without complications Status: Acute Assessment and Plan: sugars remain stephani high particularly with administration of free water in the form of D5W. Remains necessary however due to extremely severe hypernatremia. Subjective Subjective Date/Time Seen: 10/28/20 08:04 Post Op day: Seven Patient reports: other ( patient more alert and starting to verbalize) Interval history: no particular complaints but seems to still be confused Review of Systems Review of Systems: ROS unobtainable: Yes unobtainable due to medical condition and unobtainable due to mental status Exam Const: General: comfortable, no acute distress, Physically active ( more awake compared to previous notes and what I had been told) and confusion Nutritional Appearance: average body habitus Orientation/consciousness: confusion Limitations: altered mental status and physical limitations Resp: Effort & Inspection: normal respiratory effort Auscultation: clear to auscultation bilaterally Cardio: Rate: regular rate Rhythm: regular rhythm GI: Inspection: non-distended, incision ( dry and intact. No sign infection) and other ( colostomy very dusky) GI Palp: Yes Soft to palpation, Yes Tenderness to palpation present (GI), No Guarding due to palpation present (GI) and No Rebound tenderness present Auscultation: normal bowel sounds Extrem: General: no calf tenderness and no edema Objective Data Vital Signs Vital Signs: Vital Signs - 24 hr 10/27/20 11:07 10/27/20 12:00 10/27/20 16:00 Temperature 36.2 C L 36.3 C L Pulse Rate 89 58 L 56 L Respiratory Rate 18 18 Blood Pressure 142/67 H 138/46 L Pulse Oximetry 96 96 10/27/20 20:00 10/27/20 21:24 10/27/20 22:45 Temperature 36.6 C 36.3 C L Pulse Rate 58 L 56 L 52 L Respiratory Rate 18 18 Blood Pressure 124/47 L 142/72 H Pulse Oximetry 90 100 10/28/20 00:00 10/28/20 02:00 10/28/20 0
--- NOTE | 2020-10-28 08:50 | PM.IMPN ---
Progress Note: A&P Assessment and Plan (1) Hypernatremia: Code(s): E87.0 - Hyperosmolality and hypernatremia Status: Acute Assessment and Plan: -Acute hypernatremia likely secondary to surgery and dehydration -Na 157, improving, can fix the rest of the free water deficit with water through tube feeds -chest x-ray reviewed which is clear, no concern for fluid overload at this time, patient's has significant peripheral edema -urine and serum osmolarity pending, urine sodium 44 and euvolemic -encourage patient to take p.o. water and to start eating if her mentation improves -PICC line to be placed for blood draws (2) Altered mental status: Qualifiers: Altered mental status type: stupor Qualified Code(s): R40.1 - Stupor Code(s): R41.82 - Altered mental status, unspecified Status: Acute Assessment and Plan: etiology may be metabolic or infectious, patient had series complications from diverticulitis significant surgery and ICU stay (3) UTI due to extended-spectrum beta lactamase (ESBL) producing Escherichia coli: Onset Date: Unknown Code(s): N39.0 - Urinary tract infection, site not specified; B96.29 - Other Escherichia coli [E. 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: with care home use Diabetes mellitus type: type 2 Code(s): E11.9 - Type 2 diabetes mellitus without complications Status: Acute Assessment and Plan: -continue home lantus 40u Qhs -high dose sliding scale insulin -hypoglycemia protocol (5) Perforation of sigmoid colon due to diverticulitis: Code(s): K57.20 - Diverticulitis of large intestine with perforation and abscess without bleeding Status: Acute Assessment and Plan: Postop day 7 exploratory laparotomy with end colostomy (6) COVID-19: Code(s): U07.1 - COVID-19 Status: Resolved Assessment and Plan: not hypoxic, supportive care (7) DVT prophylaxis: Code(s): Z29.9 - Encounter for prophylactic measures, unspecified Status: Acute Assessment and Plan: Loganx (8) CKD (chronic kidney disease) stage 3, GFR 30-59 ml/min: Code(s): N18.30 - Chronic kidney disease, stage 3 unspecified Status: Acute Assessment and Plan: stable Cr around 1.6-1.8, this appears to be her baseline when you look back to 2019 Additional Plan Diet: Tube feeds Glucerna trickle feeds 20 cc/hour will try to rise to 30cc/hr, water flush 200 cc every 4 hours DVT prophylaxis: Lovenox Code status: Full code Prognosis guarded Subjective Date/time seen: 10/28/20 08:50 Patient examined. She is awake but not talkative or responsive. She does some moaning. Tube feeds at 20 cc/hour Glucerna with free water flush 200 cc every 4 hours. Overnight she was transferred to IMU for hyperkalemia in the [place] her potassium appears to have gone from 3.4 to 4.9 to 6.3 all with a single 40 mEq bag of potassium. Stopping IV fluids as patient today is edematous, PICC line be placed for blood draws. Will fixing hypernatremia with water through tube feeds. Patient stable to be transferred back to [facility] med/surg. Will check BMP in a.m. will try to advance her tube feeds at 30 cc an hour. Review of Systems Review of Systems: ROS unobtainable: Yes unobtainable due to medical condition and unobtainable due to mental status Exam Narrative: Exam Narrative: - GENERAL: Somnolent, ill-appearing woman - EYES: EOMI. Anicteric. - HENT: Dry oral mucosa, NG tube in place with tube feeds. - LUNGS: Clear to auscultation bilaterally - CARDIOVASCULA
[2020-10-28] MEDS: carvediloL 12.5 MG TABLET PO ×2 (10:13→21:03)
[2020-10-28] MEDS: amLODIPine BESYLATE 5 MG TABLET PO (10:13)
[2020-10-28] MEDS: PANTOPRAZOLE SODIUM IV 40 MG VIAL IV PUSH (10:13)
[2020-10-28] MEDS: ENOXAPARIN 40 MG/0.4 ML SYRINGE SUB-Q (10:14)
[2020-10-28] MEDS: LOSARTAN POTASSIUM 50 MG TABLET PO (10:14)
--- NOTE | 2020-10-28 12:10 | PC.NURSE ---
Attempted to call Ashutosh for consent to place central catheter. Alec's answered, Kendell was not available. He will be calling back once he's available.
[2020-10-28 12:11] LABS: Glucose Point of Care 300 (65-105)
--- NOTE | 2020-10-28 12:14 | PC.NURSE ---
This patient, Vanessa Rush, was transferred to [facility] on 10/28/20 at 1214. Personal belongings sent with patient. Report given to KAROL Steven. Appropriate documentation sent with patient.
--- NOTE | 2020-10-28 13:39 | PCPTNOTE ---
Attempted PT treatment, patient did not participate in any active exercise, complains of pain with movement of right lower extremity, and stated leave me alone with continued movement. Reported to RN. Will continue per Plan of Care frequency and duration.
--- NOTE | 2020-10-28 13:55 | PCDIET ---
Nutrition Follow-Up Complete: Inadequate oral intake related to oral intubation as evidenced by NPO status. Patient to meet estimated nutritional needs. Goal: Goal still appropriate. Progressing towards goal. Pt current nutrition is Glucerna 1.2 at 20ml/hr with 200ml water flush q 4 hrs Nutrition recommendation: Agree with Glucerna 1.2 and recommend increasing 10ml q 4hrs to goal of 65ml/hr Last recorded weight is 84 kg, up from assessed wt of 82.4kg Bowel Motility: 10/25 last stool noted Labs Reviewed: 331 glucose, BNP 7420, Na 157 Meds Noted: Zosyn, Protonix, Ativan, Lipitor, Melatonin Additional Notes: Pt has been on Clear liquids, moderately thick liquids. PO intake 0% due to refusal. Na high today at 157. Agree with 200ml water flush q 4 hrs until rehydrated. Recommend advancing tube feeding 10ml q 4hrs to goal for today of 30ml/hr. If tolerated and electrolytes stabilize, recommend increasing to goal of 65ml/hr tomorrow to provide 1716 kcals, 85g protein, and 1151ml of free water. Once hydrated, a water flush of 70ml q 4hrs would be appropriate if pt is receiving no other fluids. We will follow every t/f.
[2020-10-28] MEDS: LIDOCAINE HCL 1% PF INJ 5 ML VIAL INFILTRATE (14:25)
[2020-10-28 17:48] LABS: Glucose Point of Care 258 (65-105)
[2020-10-28] MEDS: INSULIN GLARGINE (*BKC) 100 UNITS/ML 40 UNITS SUB-Q (21:03)
[2020-10-28] MEDS: ATORVASTATIN 10 MG TABLET PO (21:04)
[2020-10-28] MEDS: CENTRAL LINE FLUSH 10 ML IV PUSH (21:35)
[2020-10-29] VITALS (8 sets, daily range): BP systolic 102–129; BP diastolic 36–55; PULSE 52–63; RESP 18–20; TEMP 36.2–36.6; O2SAT 92–100
[2020-10-29] MEDS: INSULIN ASPART (*BKC) 100 UNITS/ML SUB-Q ×2 (00:37→06:07)
[2020-10-29] MEDS: SODIUM CHLORIDE 0.9% IV 250 ML IV CONT (00:40)
[2020-10-29 01:26] LABS: Glucose Point of Care 256 (65-105)
[2020-10-29 05:29] LABS: Osmolality, Urine 505 mOsm/kg (50-1200)
[2020-10-29] MEDS: CENTRAL LINE FLUSH 10 ML IV PUSH ×3 (06:01→21:27)
[2020-10-29 06:43] LABS: Hematocrit 27.2 % (37.0-47.0); Hemoglobin 8.2 g/dL (12.0-15.0); Mean Corpuscular HGB Conc 30.1 g/dl (32-36); Mean Corpuscular Hemoglobin 29.2 pg (26-34); Mean Corpuscular Volume 96.8 fl (80-100); Mean Platelet Volume 12.2 fl (7.4-10.4); Platelet Count Result 223 k/mm3 (150-375); Red Blood Count 2.81 M/mm3 (4.2-5.4); Red Cell Distribution Width 14.4 % (11.5-14.5); White Blood Count 11.5 K/mm3 (4.5-10.0)
--- NOTE | 2020-10-29 08:00 | PM.IMPN ---
Progress Note: A&P Assessment and Plan (1) Hypernatremia: Code(s): E87.0 - Hyperosmolality and hypernatremia Status: Acute Assessment and Plan: -Acute hypernatremia likely secondary to surgery and dehydration -Na 152, improving, can fix the rest of the free water deficit with water through tube feeds -PICC line in right lower extremity for blood draws -can trend sodium daily (2) Altered mental status: Qualifiers: Altered mental status type: stupor Qualified Code(s): R40.1 - Stupor Code(s): R41.82 - Altered mental status, unspecified Status: Acute Assessment and Plan: -etiology may be metabolic or infectious, patient had complications from diverticulitis significant surgery and ICU stay (3) UTI due to extended-spectrum beta lactamase (ESBL) producing Escherichia coli: Onset Date: Unknown Code(s): N39.0 - Urinary tract infection, site not specified; B96.29 - Other Escherichia coli [E. 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 Diabetes mellitus complication status: with kidney complications Diabetes mellitus complication detail: with chronic kidney disease Code(s): E11.9 - Type 2 diabetes mellitus without complications Status: Acute Assessment and Plan: -continue home lantus 40u Qhs -high dose sliding scale insulin -hypoglycemia protocol (5) Perforation of sigmoid colon due to diverticulitis: Code(s): K57.20 - Diverticulitis of large intestine with perforation and abscess without bleeding Status: Acute Assessment and Plan: Postop day 8 exploratory laparotomy with end colostomy (6) COVID-19: Code(s): U07.1 - COVID-19 Status: Resolved Assessment and Plan: not hypoxic, supportive care (7) DVT prophylaxis: Code(s): Z29.9 - Encounter for prophylactic measures, unspecified Status: Acute Assessment and Plan: Lovenox (8) CKD (chronic kidney disease) stage 3, GFR 30-59 ml/min: Code(s): N18.30 - Chronic kidney disease, stage 3 unspecified Status: Acute Assessment and Plan: -baseline creatinine 1.6-1.8. Cr up to 2.2 will watch, hold off on IVF with how edematous she is, may be pre-renal azotemia versus ATN from low blood pressures overnight. She may be intravascularly depleted, if blood pressures become soft, then will start isotonic fluids at gentle rate -follow-up BMP in a.m. Additional Plan Diet: Tube feeds Glucerna trickle feeds 30 cc/hour will try to rise to 40cc/hr, water flush 200 cc every 4 hours DVT prophylaxis: Lovenox Code status: Full code Prognosis guarded, family insists full code Subjective Date/time seen: 10/29/20 08:00 Patient examined. Clinically stable, no real change. Patient has a poor prognosis. Family reiterated full code status. sodium down to 152. Patient has significant peripheral edema, 3rd spacing. Sodium can be corrected through tube feeds free water flushes. No more IV fluids given. Patient's creatinine elevated to 2.2, patient was reportedly hypotensive overnight may be component of prerenal azotemia/ATN. Will follow strict input/output. Review of Systems Review of Systems: ROS unobtainable: Yes unobtainable due to medical condition and unobtainable due to mental status Exam Narrative: Exam Narrative: - GENERAL: Somnolent, ill-appearing woman, tube feeds at 30 cc an hour Bob - EYES: EOMI. Anicteric. - HENT: Dry oral mucosa, NG tube in place with tube feeds. - LUNGS: Clear to auscultation bilaterally - CARDIOVASCULAR: Regular rate and rhythm. - ABDOMEN: Soft, nondistended, ostomy with stool output, JAX drain - EXTREMITIES: Peripheral puls
[2020-10-29 08:50] LABS: Anion Gap 5 mmol/L (8-16); Blood Urea Nitrogen 59 mg/dL (7-17); Calcium 7.5 mg/dL (8.4-10.2); Carbon Dioxide 24 mmol/L (22-30); Chloride 123 mmol/L (98-107); Estimated CRCL calculation 19 ml/min; Estimated Glomerular Filt Rate 21; Glucose 229 mg/dL (65-105); Potassium 3.6 mmol/L (3.4-5.0); Sodium 152 mmol/L (137-145)
[2020-10-29] MEDS: ENOXAPARIN 40 MG/0.4 ML SYRINGE SUB-Q (09:39)
[2020-10-29] MEDS: PANTOPRAZOLE SODIUM IV 40 MG VIAL IV PUSH (09:39)
[2020-10-29] MEDS: amLODIPine BESYLATE 5 MG TABLET PO (09:39)
[2020-10-29] MEDS: LOSARTAN POTASSIUM 50 MG TABLET PO (09:40)
--- NOTE | 2020-10-29 11:09 | PM.PNGS ---
Progress Note: A&P Assessment and Plan (1) Perforation of sigmoid colon due to diverticulitis: Code(s): K57.20 - Diverticulitis of large intestine with perforation and abscess without bleeding Status: Acute Assessment and Plan: colostomy now working well. Patient may be developing wound infection particularly in the lower most aspect of the wound. This would not be surprising considering the nature of her illness. Will watch and may need to take out a few theron tomorrow. Could be the cause of rising white blood cell count. (2) Acute kidney injury: Onset Date: Unknown Code(s): N17.9 - Acute kidney failure, unspecified Status: Acute Assessment and Plan: creatinine up to 2.2. May need to administer isotonic fluids (3) Altered mental status: Qualifiers: Altered mental status type: stupor Qualified Code(s): R40.1 - Stupor Code(s): R41.82 - Altered mental status, unspecified Status: Acute Assessment and Plan: more somnolent today. Seem to be more talkative although confused yesterday (4) Hypernatremia: Code(s): E87.0 - Hyperosmolality and hypernatremia Status: Acute Assessment and Plan: sodium down to 152 this morning. 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 Subjective Subjective Date/Time Seen: 10/29/20 11:09 Post Op day: 8 Patient reports: other (very somnolent this a.m. Arouses briefly) Interval history: Receiving tube feeds at 30 an hour Review of Systems Review of Systems: ROS unobtainable: Yes unobtainable due to medical condition and unobtainable due to mental status Exam Resp: Effort & Inspection: normal respiratory effort and symmetric chest movement Auscultation: rhonchi and diminished lung sounds Cardio: Rate: regular rate Rhythm: regular rhythm GI: Inspection: non-distended and incision ( erythema and some drainage at lower aspect of incision; colostomy working ) GI Palp: Yes Soft to palpation and No Tenderness to palpation present (GI) ( no apparent tenderness but patient pretty somnolent this morning) Auscultation: normal bowel sounds Objective Data Vital Signs Vital Signs: Vital Signs - 24 hr 10/28/20 12:00 10/28/20 16:00 10/28/20 20:00 Temperature 36.6 C 35.8 C L 35.8 C L Pulse Rate 49 L 52 L 52 L Respiratory Rate 16 16 16 Blood Pressure 121/46 L 115/41 L 111/34 L Pulse Oximetry 100 99 99 10/28/20 21:03 10/29/20 00:00 10/29/20 02:00 Temperature 36.6 C Pulse Rate 80 52 L 52 L Respiratory Rate 20 Blood Pressure 109/36 L 102/39 L Pulse Oximetry 100 10/29/20 04:00 10/29/20 08:00 Temperature 36.2 C L 36.2 C L Pulse Rate 63 55 L Respiratory Rate 18 18 Blood Pressure 110/50 L 110/40 L Pulse Oximetry 96 92 sodium level, blood sugars are better creatinine is up to 2.2 and white count increasing, now 11,500 Intake/Output Intake/Output: Intake & Output 10/26/20 10/27/20 10/28/20 10/29/20 23:59 23:59 23:59 23:59 Intake Total 1500 3150 1594 300 Output Total 1850 800 955 365 Balance -350 2350 639 -65 Meds/Results Medications: Active Medications Generic Name Dose Route Start Last Admin Trade Name Shreeq PRN Reason Stop Dose Admin Acetaminophen 650 mg 10/24/20 13:20 10/24/20 14:20 Acetaminophen 325 Mg Tablet PO 650 mg Q4H PRN Administration Mild Pain (1-3) or Fever Amlodipine Besylate 5 mg 10/26/20 10:20 10/29/20 09:39 Amlodipine Besylate 5 Mg Tablet PO 5 mg DAILY ALONSO Administration Atorvastatin Calcium 10 mg 10/26/20 21:00 10/28/20 21:04
--- NOTE | 2020-10-29 11:39 | PC.NURSE ---
Pt's feeding increased to 40/hr, per Dr. Calloway.
--- NOTE | 2020-10-29 11:40 | PC.NURSE ---
patient test + on 10/11. Dr. Blanca asking if isolation could be stopped regarding 18 days since positive test. d/w Berenice Coreas. She states that they had reviewed patient on Saturday but the patient had a fever that day so isolation was continued. Patient afebrile since Saturday. Ok to d/c isolation per Berenice
[2020-10-29 12:13] LABS: Glucose Point of Care 200 (65-105)
[2020-10-29 13:11] LABS: Glucose Point of Care 242 (65-105)
--- NOTE | 2020-10-29 13:30 | PCPTNOTE ---
Patient refused treatment this session. During attempts for AAROM and PROM Pt kept saying No. No. No. Pt becomes rigid and fights against PROM preformed by therapist. Will continue per POC.
[2020-10-29 19:32] LABS: Glucose Point of Care 192 (65-105)
[2020-10-29] MEDS: INSULIN GLARGINE (*BKC) 100 UNITS/ML 40 UNITS SUB-Q (21:22)
[2020-10-29] MEDS: ATORVASTATIN 10 MG TABLET PO (21:27)
[2020-10-29 21:36] LABS: Glucose Point of Care 256 (65-105)
[2020-10-30] VITALS (9 sets, daily range): BP systolic 127–139; BP diastolic 42–47; PULSE 59–68; RESP 18–26; TEMP 36.4–37.3; O2SAT 92–98
[2020-10-30] MEDS: INSULIN ASPART (*BKC) 100 UNITS/ML SUB-Q ×2 (01:58→23:23)
[2020-10-30 02:03] LABS: Glucose Point of Care 253 (65-105)
[2020-10-30] MEDS: CENTRAL LINE FLUSH 10 ML IV PUSH ×3 (05:30→20:54)
[2020-10-30 05:54] LABS: Glucose Point of Care 193 (65-105)
[2020-10-30 06:04] LABS: Hemoglobin 8.9 g/dL (12.0-15.0); Mean Corpuscular HGB Conc 29.7 g/dl (32-36); Mean Corpuscular Hemoglobin 28.9 pg (26-34); Mean Corpuscular Volume 97.4 fl (80-100); Mean Platelet Volume 12.5 fl (7.4-10.4); Platelet Count Result 241 k/mm3 (150-375); Red Blood Count 3.08 M/mm3 (4.2-5.4); Red Cell Distribution Width 14.6 % (11.5-14.5); White Blood Count 12.4 K/mm3 (4.5-10.0)
[2020-10-30 06:47] LABS: Anion Gap 5 mmol/L (8-16); Blood Urea Nitrogen 69 mg/dL (7-17); Calcium 7.6 mg/dL (8.4-10.2); Carbon Dioxide 25 mmol/L (22-30); Chloride 121 mmol/L (98-107); Estimated CRCL calculation 18 ml/min; Estimated Glomerular Filt Rate 20; Glucose 176 mg/dL (65-105); Potassium 3.5 mmol/L (3.4-5.0); Sodium 151 mmol/L (137-145)
[2020-10-30] MEDS: PANTOPRAZOLE SODIUM IV 40 MG VIAL IV PUSH (08:15)
[2020-10-30] MEDS: ENOXAPARIN 40 MG/0.4 ML SYRINGE SUB-Q (08:15)
[2020-10-30] MEDS: LOSARTAN POTASSIUM 50 MG TABLET PO (08:15)
--- NOTE | 2020-10-30 08:44 | PM.PNGS ---
Progress Note: A&P Assessment and Plan (1) Perforation of sigmoid colon due to diverticulitis: Code(s): K57.20 - Diverticulitis of large intestine with perforation and abscess without bleeding Status: Acute Assessment and Plan: colostomy working but has dusky appearance. Wound looks a little better today. Patient still very somnolent even though sodium is much improved. With rising white count, may need repeat CT of abdomen. Zosyn renewed and now has been on this for 9 days. Tolerating tube feeds at 40 cc an hour. (2) Acute kidney injury: Onset Date: Unknown Code(s): N17.9 - Acute kidney failure, unspecified Status: Acute Assessment and Plan: Creatinine continues to rise. Patient receiving and D5 half normal saline at 150cc an hour due to history of hypernatremia. Consider changed to normal saline at same rate (3) Altered mental status: Qualifiers: Altered mental status type: stupor Qualified Code(s): R40.1 - Stupor Code(s): R41.82 - Altered mental status, unspecified Status: Acute Assessment and Plan: remains very somnolent (4) Hypernatremia: Code(s): E87.0 - Hyperosmolality and hypernatremia Status: Acute Assessment and Plan: sodium down to 151 this morning. (5) Diabetes: Qualifiers: Diabetes mellitus type: type 2 Diabetes mellitus manager intermediate insulin use: with manager intermediate use Diabetes mellitus complication status: with kidney complications Diabetes mellitus complication detail: with chronic kidney disease Code(s): E11.9 - Type 2 diabetes mellitus without complications Status: Acute Assessment and Plan: blood sugars much improved now that free water administration completed. Subjective Subjective Date/Time Seen: 10/30/20 08:44 Post Op day: 9 Patient reports: other ( Somnolent again today. Arouses minimally. Tube feeds going at 40 an hour now) Review of Systems Review of Systems: ROS unobtainable: Yes unobtainable due to medical condition and unobtainable due to mental status Exam Const: General: patient obtunded Nutritional Appearance: average body habitus Orientation/consciousness: patient obtunded Limitations: altered mental status GI: Inspection: non-distended, incision ( less erythema and no drainage noted in lower portion of incision) and other ( colostomy dusky but working) GI Palp: Yes Soft to palpation, Yes Tenderness to palpation present (GI) ( minimal tenderness but patient has altered mental status), No Guarding due to palpation present (GI) and No Rebound tenderness present Auscultation: normal bowel sounds Objective Data Vital Signs Vital Signs: Vital Signs - 24 hr 10/29/20 12:00 10/29/20 16:00 10/29/20 20:00 Temperature 36.2 C L Pulse Rate 58 L 56 L 59 L Respiratory Rate 20 Blood Pressure 120/39 L Pulse Oximetry 97 10/29/20 22:00 10/30/20 00:00 10/30/20 04:00 Temperature 36.3 C L Pulse Rate 61 59 L 59 L Respiratory Rate 18 Blood Pressure 129/55 L Pulse Oximetry 97 10/30/20 06:00 Temperature 36.6 C Pulse Rate 68 Respiratory Rate 18 Blood Pressure 139/47 L Pulse Oximetry 98 Intake/Output Intake/Output: Intake & Output 10/27/20 10/28/20 10/29/20 10/30/20 23:59 23:59 23:59 23:59 Intake Total 3150 1594 400 50 Output Total 800 955 520 480 Balance 2350 040 -120 -858 Meds/Results Medications: Active Medications Generic Name Dose Route Start Last Admin Trade Name Freq PRN Reason Stop Dose Admin Acetaminophen 650 mg 10/24/20 13:20 10/24/20 14:20 Acetaminophen 325 Mg Tablet PO 650 mg Q4H PRN Administration Mild Pain (1-3) or Fever Amlodipine Besylate 5 mg 10/26/20 10:20 10/29/20 09:39 Amlodipine Besylate 5 Mg Tablet PO 5 mg DAILY ALONSO Administration Atorvastatin Calcium 10 mg 10/26/20 21:00 10/29/20 21:27 Atorvastatin 10 Mg Tablet PO 10 mg HS ALONSO Administration Carvedilo
--- NOTE | 2020-10-30 12:14 | PM.IMPN ---
Progress Note: A&P Assessment and Plan (1) Oliguria: Code(s): R34 - Anuria and oliguria Status: Acute Assessment and Plan: Patient has peripheral edema and decreased urine output, 0.2 ml/kg/hr. Her kidneys are failing and she is 3rd spacing all her volume. Consulting Nephrology, discussed with Dr. Watson who will see patient. I have ordered Lasix 40 mg IV once to see if her urine output responds. Patient's blood pressures have been stable. I believe she is intravascularly stable. (2) Hypernatremia: Code(s): E87.0 - Hyperosmolality and hypernatremia Status: Acute Assessment and Plan: -Acute hypernatremia likely secondary to surgery and dehydration -Na 151, fixing free water deficit with water flushes through NG tube -PICC line in right lower extremity for blood draws -can trend sodium daily (3) Altered mental status: Qualifiers: Altered mental status type: stupor Qualified Code(s): R40.1 - Stupor Code(s): R41.82 - Altered mental status, unspecified Status: Acute Assessment and Plan: -etiology may be metabolic or infectious, patient had complications from diverticulitis significant surgery and ICU stay (4) UTI due to extended-spectrum beta lactamase (ESBL) producing Escherichia coli: Onset Date: Unknown Code(s): N39.0 - Urinary tract infection, site not specified; B96.29 - Other Escherichia coli [E. coli] as the cause of diseases classified elsewhere; Z16.12 - Extended spectrum beta lactamase (ESBL) resistance Status: Acute Assessment and Plan: -continue zosyn for UTI and intra-abdominal spillage (5) Diabetes: Qualifiers: Diabetes mellitus type: type 2 Diabetes mellitus rn long term care insulin use: with penitentiary use Diabetes mellitus complication status: with kidney complications Diabetes mellitus complication detail: with chronic kidney disease Chronic kidney disease stage: stage 4 (severe) Qualified Code(s): E11.22 - Type 2 diabetes mellitus with diabetic chronic kidney disease; N18.4 - Chronic kidney disease, stage 4 (severe); Z79.4 - [facility]FP (current) use of insulin Code(s): E11.9 - Type 2 diabetes mellitus without complications Status: Acute Assessment and Plan: -continue home lantus 40u Qhs -high dose sliding scale insulin -hypoglycemia protocol (6) Perforation of sigmoid colon due to diverticulitis: Code(s): K57.20 - Diverticulitis of large intestine with perforation and abscess without bleeding Status: Acute Assessment and Plan: Postop day 9 exploratory laparotomy with end colostomy (7) COVID-19: Code(s): U07.1 - COVID-19 Status: Resolved Assessment and Plan: not hypoxic, supportive care, off isolation (8) DVT prophylaxis: Code(s): Z29.9 - Encounter for prophylactic measures, unspecified Status: Acute Assessment and Plan: Lovenox (9) CKD (chronic kidney disease) stage 3, GFR 30-59 ml/min: Qualifiers: Chronic kidney disease stage 3 subtype: unspecified whether 3a or 3b Qualified Code(s): N18.30 - Chronic kidney disease, stage 3 unspecified Code(s): N18.30 - Chronic kidney disease, stage 3 unspecified Status: Acute Assessment and Plan: -baseline creatinine 1.6-1.8 -Cr up to 2.3, GFR down to 20 -consulting Nephrology Additional Plan Diet: Tube feeds Glucerna 40cc/hr, water flush 200 cc every 4 hours DVT prophylaxis: Lovenox Code status: Full code Prognosis guarded, family insists full code Subjective Date/time seen: 10/30/20 12:14 Patient examined. Patient now has oliguria, decreased urine output and increased edema peripherally. Patient is going into renal failure creatinine slowly rising, urine output decreasing. Patient is still hypernatremic 151, correcting with p.o. tube feeds water flushes. Patient is tolerating her tube feeds Glucerna at 40 cc/hour with stool in ostomy. Stopped IV fluids with wo
--- NOTE | 2020-10-30 12:47 | PM.CNNEP ---
Assessment and Plan Assessment and plan (1) Acute kidney injury: Onset Date: Unknown Code(s): N17.9 - Acute kidney failure, unspecified Status: Acute Assessment and Plan: The patient has acute kidney injury. She seems to have mild chronic kidney disease stage 3 even back in 2019 when her creatinine was 1 her GFR was 53. At 1st her creatinine was elevated because of infection and dehydration. The perforation was fixed and she got IV fluids and she was hemodynamically stabilized in her creatinine improved to 1.6. It is not clear why she did not get better at that point. Now her creatinine is worsened to 2 and above. Her urine output is low. She could have pre renal azotemia on the basis of 3rd spacing. See below. She could have allergic interstitial nephritis from the Zosyn. Her urine has an ESBL and there are not many other options. Consider changing to imipenem? Will check urine eosinophils and blood eosinophils. She could have ATN but I would have thought she would have had this on admission not now unless there is something else going on. She did have an episode of low blood pressure a couple of nights ago which could have spawned this rise in creatinine. I doubt if she has a glomerulonephritis. She does not appear to have any vascular issues going on with the kidneys at this time. Her platelet count is normal. (2) Edema: Code(s): R60.9 - Edema, unspecified Status: Acute Assessment and Plan: She is very swollen. She could have 3rd spacing due to infection. However her white count is okay and she is not febrile. She had a bladder infection but this is being treated with Zosyn. She had spillage of colonic contents in the peritoneal cavity when she was admitted but she has received antibiotics for this and continuously improved. She is tolerating tube feedings having bowel movements and her belly is not tender so I do not think she has a recurrent belly issue right now. Her albumin was on the way down on the . This may be worse now. This could cause 3rd spacing as well. Her cardiac function might have worsened for some reason. Will check troponins and an echo. Notably she did have mild pulmonary hypertension a year ago on an echo done in April of 2019. (3) CKD (chronic kidney disease) stage 3, GFR 30-59 ml/min: Qualifiers: Chronic kidney disease stage 3 subtype: unspecified whether 3a or 3b Qualified Code(s): N18.30 - Chronic kidney disease, stage 3 unspecified Code(s): N18.30 - Chronic kidney disease, stage 3 unspecified Status: Acute Assessment and Plan: The patient had a creatinine of 1.0 with a GFR of 53 in May of 2019. He has hypertension and diabetes. (4) Hypernatremia: Code(s): E87.0 - Hyperosmolality and hypernatremia Status: Acute Assessment and Plan: She was free of water depleted. This is being repleted currently. Her sodium is improving. (5) Altered mental status: Qualifiers: Altered mental status type: stupor Qualified Code(s): R40.1 - Stupor Code(s): R41.82 - Altered mental status, unspecified Status: Acute Assessment and Plan: Etiology is unclear. Evaluation per hospitalist (6) Perforation of sigmoid colon due to diverticulitis: Code(s): K57.20 - Diverticulitis of large intestine with perforation and abscess without bleeding Status: Acute Assessment and Plan: She had surgery to repair the perforation. History of Present Illness Reason for Consult Consult date: 10/30/20 Chief Complaint Chief complaint: high blood sugar, covid + History of Present Illness Narrative: Patient is an unfortunate 85-year-old lady who has multiple medical problems including, hypertension, history of renal failure, COVID-19 which is just finished, hypernatremia, and now back into renal failure. The patient was admitted on the 20 of October with belly pain. It tu
[2020-10-30] MEDS: FUROSEMIDE INJ 40 MG/4 ML VIAL IV PUSH (13:16)
[2020-10-30 14:25] LABS: Creatine Kinase 24 U/L (30-135)
[2020-10-30 14:32] LABS: Complement C3 110 mg/dL (88-165)
[2020-10-30 14:41] LABS: Erythrocyte Sedimentation Rate > 140 mm/hr (0-20)
[2020-10-30 15:06] LABS: Iron < 10 ug/dL (37-170)
[2020-10-30 15:22] LABS: Percent Iron Saturation < 5 % (20-50)
[2020-10-30 16:59] LABS: Sodium Urine Random 27 meq/L
[2020-10-30 17:07] LABS: Glucose Point of Care 153 (65-105)
[2020-10-30 17:40] LABS: Glucose Point of Care 179 (65-105)
[2020-10-30] MEDS: INSULIN GLARGINE (*BKC) 100 UNITS/ML 40 UNITS SUB-Q (20:54)
[2020-10-30 21:25] LABS: Glucose Point of Care 216 (65-105)
[2020-10-30] MEDS: ATORVASTATIN 10 MG TABLET PO (23:21)
[2020-10-31] VITALS (7 sets, daily range): BP systolic 118–122; BP diastolic 38–42; PULSE 58–62; RESP 20–22; TEMP 36.6–37.9; O2SAT 95–98
[2020-10-31] LABS: Glucose Point of Care 225 (65-105)
--- NOTE | 2020-10-31 | ECHO_ITS ---
Patient Info Name: Vanessa Rush Age: 85 years : 1935 Gender: Female Ht: 66 in Wt: 185 lbs BSA: 2.00 m2 HR: 60 bpm BP: 137 / 42 mmHg Heart Rhythm: Sinus Rhythm Technical Quality: Good Exam Date: 10/31/2020 11:07 AM Exam Location: [facility] Pul[facility] Patient Status: Inpatient Admit Date: 10/20/2020 Staff Ordering Physician: Yao Watson MD Slag Production Worker: Kendell Francois RDCS Attending Provider: Swati Jennings MD Referring Physician: Shirley SOSA; Exam Type: CA echo doppler color flow Study Info Indications R60.9 - Edema, unspecified Complete two-dimensional, color flow and Doppler transthoracic echocardiogram is performed. History/Risk Factors Covid19+; Afib, Dm, edema, HTN, pHTN. Summary 1. Left ventricular systolic function is normal, estimated at 60-65%. 2. There is mildly increased left ventricular wall thickness. 3. There is moderate aortic valve stenosis with a peak velocity of 296 cm/s, mean gradient of 20 mmHg, and aortic valve area of 1.4 cm2. 4. There is moderate aortic valve calcification. 5. There is trace mitral valve regurgitation. 6. There is trace tricuspid valve regurgitation. 7. Mild pulmonary hypertension, estimated pulmonary arterial systolic pressure is 41 mmHg. Left Ventricle Left ventricular chamber dimension is normal. Left ventricular systolic function is normal, estimated at 60-65%. There is mildly increased left ventricular wall thickness. The left ventricular diastolic function is grade I diastolic dysfunction. Right Ventricle Right ventricular chamber dimension is normal. Right ventricular systolic function is normal. Left Atria Left atrial chamber dimension is normal. Right Atria Right atrial chamber dimension is normal. Aortic Valve The aortic valve is not well visualized. There is moderate aortic valve stenosis with a peak velocity of 296 cm/s, mean gradient of 20 mmHg, and aortic valve area of 1.4 cm2. There is no aortic valve regurgitation. There is moderate aortic valve calcification. Pulmonic Valve The pulmonic valve is not well visualized. There is trace pulmonic regurgitation. Mitral Valve The mitral valve has thickened leaflets. There is trace mitral valve regurgitation. The mitral valve annulus is moderately calcified. Tricuspid Valve The tricuspid valve leaflets are normal. There is trace tricuspid valve regurgitation. Mild pulmonary hypertension, estimated pulmonary arterial systolic pressure is 41 mmHg. Pericardium/Pleural The pericardium appears normal. There is no pericardial effusion. Inferior Vena Cava Normal inferior vena cava with >50% collapse upon inspiration consistent with normal right atrial pressure, 5 mmHg. Aorta The aortic root size at the sinus of Valsalva is normal. There is mild-moderate aortic atherosclerosis. Left Ventricular Outflow Tract Name Value Normal LVOT 2D LVOT Diameter 2.0 cm LVOT Doppler LVOT Peak Gradient 7 mmHg LVOT Mean Gradient 4 mmHg LVOT VTI 32 cm LVOT VT
[2020-10-31] MEDS: CENTRAL LINE FLUSH 10 ML IV PUSH ×3 (05:32→21:37)
[2020-10-31] MEDS: INSULIN ASPART (*BKC) 100 UNITS/ML SUB-Q ×2 (05:40→17:39)
[2020-10-31 06:13] LABS: Glucose Point of Care 211 (65-105)
[2020-10-31 06:38] LABS: Anion Gap 6 mmol/L (8-16); Blood Urea Nitrogen 85 mg/dL (7-17); Calcium 7.5 mg/dL (8.4-10.2); Carbon Dioxide 20 mmol/L (22-30); Chloride 122 mmol/L (98-107); Estimated CRCL calculation 19 ml/min; Estimated Glomerular Filt Rate 21; Glucose 218 mg/dL (65-105); Potassium 4.2 mmol/L (3.4-5.0); Sodium 148 mmol/L (137-145)
[2020-10-31 09:23] LABS: Hematocrit 25.2 % (37.0-47.0); Hemoglobin 7.9 g/dL (12.0-15.0); Mean Corpuscular HGB Conc 31.3 g/dl (32-36); Mean Corpuscular Hemoglobin 29.4 pg (26-34); Mean Corpuscular Volume 93.7 fl (80-100); Mean Platelet Volume 13.4 fl (7.4-10.4); Platelet Count Result 150 k/mm3 (150-375); Red Blood Count 2.69 M/mm3 (4.2-5.4); Red Cell Distribution Width 14.3 % (11.5-14.5); White Blood Count 13.5 K/mm3 (4.5-10.0)
--- NOTE | 2020-10-31 09:35 | PM.PNGS ---
Progress Note: A&P Assessment and Plan (1) Perforation of sigmoid colon due to diverticulitis: Code(s): K57.20 - Diverticulitis of large intestine with perforation and abscess without bleeding Status: Acute Assessment and Plan: roberth TF @ goal, +ostomy fxn, await WBC trend, may get CT if WBC trending up Subjective Subjective Date/Time Seen: 10/31/20 09:35 still very lethargic and difficult to arouse Review of Systems Review of Systems: ROS unobtainable: Yes unobtainable due to mental status Exam Const: Nutritional Appearance: obese Orientation/consciousness: lethargic Limitations: altered mental status Resp: Effort & Inspection: normal respiratory effort Auscultation: diminished lung sounds Cardio: Rate: regular rate Rhythm: regular rhythm GI: Inspection: no edema, non-distended and incision GI Palp: Yes Soft to palpation, No Firmness to palpation present (GI), Yes Tenderness to palpation present (GI) and No Guarding due to palpation present (GI) Other: ostomy - +fxn, soft, sl dist, lillie TTP, incision C/D/I Objective Data Vital Signs Vital Signs: Vital Signs - 24 hr 10/30/20 12:00 10/30/20 14:00 10/30/20 16:00 Temperature 36.4 C Pulse Rate 62 63 61 Respiratory Rate 26 H Blood Pressure 127/47 L Pulse Oximetry 96 10/30/20 20:00 10/30/20 22:10 10/31/20 01:25 Temperature 37.3 C 37.8 C H Pulse Rate 60 62 Respiratory Rate 20 Blood Pressure 137/42 L Pulse Oximetry 97 10/31/20 02:16 10/31/20 02:46 10/31/20 05:00 Temperature 37.9 C H 37.7 C H 37.7 C H Pulse Rate 61 Respiratory Rate 20 Blood Pressure 121/42 L Pulse Oximetry 95 Intake/Output Intake/Output: Intake & Output 10/28/20 10/29/20 10/30/20 10/31/20 23:59 23:59 23:59 23:59 Intake Total 1594 400 150 150 Output Total 113 705 914 720 Balance 639 -120 -765 -570 Meds/Results Medications: Active Medications Generic Name Dose Route Start Last Admin Trade Name Freq PRN Reason Stop Dose Admin Acetaminophen 650 mg 10/24/20 13:20 10/24/20 14:20 Acetaminophen 325 Mg Tablet PO 650 mg Q4H PRN Administration Mild Pain (1-3) Amlodipine Besylate 5 mg 10/26/20 10:20 10/30/20 13:10 Amlodipine Besylate 5 Mg Tablet PO Not Given DAILY ALONSO Atorvastatin Calcium 10 mg 10/26/20 21:00 10/30/20 23:21 Atorvastatin 10 Mg Tablet PO 10 mg HS ALONSO Administration Carvedilol 12.5 mg 10/26/20 09:00 10/28/20 21:03 Carvedilol 12.5 Mg Tablet PO 12.5 mg Q12H ALONSO Administration Dextrose 12.5 gm 10/21/20 10:28 Dextrose 50% 25 Gm/50 Ml Syringe IV PUSH PRN PRN Hypoglycemia Protocol Enoxaparin Sodium 40 mg 10/21/20 09:00 10/30/20 08:15 Enoxaparin 40 Mg/0.4 Ml Syringe SUB-Q 40 mg DAILY ALONSO Administration Glucagon 1 mg 10/21/20 10:28 Glucagon For Inj 1 Mg Vial IM PRN PRN Hypoglycemia Protocol Glucose 15 gm 10/21/20 10:28 Glucose Oral Gel 15 Gm Of Glucse In 37.5 Gm Tube PO PRN PRN Hypoglycemia Protocol Piperacillin Sod/Tazobactam Sod 2.25 gm in 50 mls @ 100 mls/hr 10/21/20 05:00 10/31/20 06:05 Zosyn 2.25 Gm/D5w 50 Ml IVPB Infused Q8H ALONSO Infusion Dextrose 1,000 mls @ 100 mls/hr 10/21/20 10:28 Dextrose 5% 1,000 Ml IVPB PRN PRN Hypoglycemia Protocol Acetaminophen 1,000 mg in 100 mls @ 400 mls/hr 10/31/20 01:38 10/31/20 02:31 Ofirmev 1,000 Mg Ivpb IVPB 11/01/20 01:39 Infused Q6HR PRN Infusion Fever Insulin Aspart 4 - 8 units 10/22/20 12:00 10/31/20 05:40 Insulin Aspart (*Bkc) 100 Units/Ml SUB-Q 4 units Q6HR ALONSO Administration Protocol Insulin Glargine 40 units 10/26/20 21:00 10/30/20 20:54 Insulin Glargine (*Bkc) 100 Units/Ml SUB-Q 40 units HS ALONSO Administration Lorazepam 2 mg 10/21/20 03:46 Lorazepam Inj (*Crx) 2 Mg/Ml Vial IV PUSH Q2H PRN Anxiety Losartan Potassium 50 mg 10/27/20 09:00 10/30/20 08:15 Lo
--- NOTE | 2020-10-31 10:30 | PM.PNNEP ---
Progress Note: A&P Assessment and Plan (1) Acute kidney injury: Onset Date: Unknown Code(s): N17.9 - Acute kidney failure, unspecified Status: Acute Assessment and Plan: The patient has acute kidney injury. Random urine sodium 27. Other tests were not done. Urinalysis shows blood and protein. Ultrasound is normal creatinine is stable the last 3 days. She has edema. She does not appear dehydrated. Consider interstitial nephritis. ? Change antibiotics ? she has a bladder infection but it does not look like she is toxic from this. She did have low blood pressure couple of days ago which may have stunned her kidneys. will watch the creatinine and await the remainder of the tests to come back. (2) Edema: Code(s): R60.9 - Edema, unspecified Status: Acute Assessment and Plan: She is very swollen. She could have 3rd spacing due to infection. However her white count is okay and she is not febrile. She had a bladder infection but this is being treated with Zosyn. She had spillage of colonic contents in the peritoneal cavity when she was admitted but she has received antibiotics for this and continuously improved. She is tolerating tube feedings having bowel movements and her belly is not tender so I do not think she has a recurrent belly issue right now. Her albumin was on the way down on the . This may be worse now. This could cause 3rd spacing as well. Her cardiac function might have worsened for some reason. Will check troponins and an echo. Notably she did have mild pulmonary hypertension a year ago on an echo done in April of 2019. (3) CKD (chronic kidney disease) stage 3, GFR 30-59 ml/min: Qualifiers: Chronic kidney disease stage 3 subtype: unspecified whether 3a or 3b Qualified Code(s): N18.30 - Chronic kidney disease, stage 3 unspecified Code(s): N18.30 - Chronic kidney disease, stage 3 unspecified Status: Acute Assessment and Plan: The patient had a creatinine of 1.0 with a GFR of 53 in May of 2019. He has hypertension and diabetes. (4) Hypernatremia: Code(s): E87.0 - Hyperosmolality and hypernatremia Status: Acute Assessment and Plan: She was free of water depleted. This is being repleted currently. Her sodium continues to improve (5) Altered mental status: Qualifiers: Altered mental status type: stupor Qualified Code(s): R40.1 - Stupor Code(s): R41.82 - Altered mental status, unspecified Status: Acute Assessment and Plan: Etiology is unclear. Evaluation per hospitalist (6) Perforation of sigmoid colon due to diverticulitis: Code(s): K57.20 - Diverticulitis of large intestine with perforation and abscess without bleeding Status: Acute Assessment and Plan: She had surgery to repair the perforation. Subjective Date/time seen: 10/31/20 10:30 Interval history: Patient is not interactive. She looks comfortable. Review of Systems Review of Systems: ROS unobtainable: Yes unobtainable due to medical condition Exam Narrative: Exam Narrative: WDWN in NAD skin no rash head ncat lungs clear cor reg no rub abd BS+ nontender and soft ext 1-2+ edema. Objective Data Vital Signs Vital Signs: Vital Signs - 24 hr 10/30/20 12:00 10/30/20 14:00 10/30/20 16:00 Temperature 36.4 C Pulse Rate 62 63 61 Respiratory Rate 26 H Blood Pressure 127/47 L Pulse Oximetry 96 10/30/20 20:00 10/30/20 22:10 10/31/20 01:25 Temperature 37.3 C 37.8 C H Pulse Rate 60 62 Respiratory Rate 20 Blood Pressure 137/42 L Pulse Oximetry 97 10/31/20 02:16 10/31/20 02:46 10/31/20 05:00 Temperature 37.9 C H 37.7 C H 37.7 C H Pulse Rate 61 Respiratory Rate 20 Blood Pressure 121/42 L Pulse Oximetry 95 Intake/Output Intake/Output: Intake & Output 10/28/20 10/29/20 10/30/20 10/31/20 23:59 23:59 23:59 23:59
[2020-10-31] MEDS: PANTOPRAZOLE SODIUM IV 40 MG VIAL IV PUSH (10:41)
[2020-10-31] MEDS: ENOXAPARIN 40 MG/0.4 ML SYRINGE SUB-Q (10:41)
[2020-10-31] MEDS: LOSARTAN POTASSIUM 50 MG TABLET PO (10:46)
--- NOTE | 2020-10-31 14:31 | PM.IMPN ---
Progress Note: A&P Assessment and Plan (1) Oliguria: Code(s): R34 - Anuria and oliguria Status: Acute Assessment and Plan: Urine output improved. Patient appears to respond to Lasix once 40 mg. Patient still has significant peripheral edema. Blood pressure stable. Nephrology following. (2) Hypernatremia: Code(s): E87.0 - Hyperosmolality and hypernatremia Status: Acute Assessment and Plan: -Acute hypernatremia likely secondary to surgery and dehydration -Na 148, fixing free water deficit with water flushes through NG tube -PICC line in right lower extremity for blood draws -can trend sodium daily (3) Altered mental status: Qualifiers: Altered mental status type: stupor Qualified Code(s): R40.1 - Stupor Code(s): R41.82 - Altered mental status, unspecified Status: Acute Assessment and Plan: -no improvement, etiology may be metabolic or infectious, patient had complications from diverticulitis significant surgery and ICU stay (4) UTI due to extended-spectrum beta lactamase (ESBL) producing Escherichia coli: Onset Date: Unknown Code(s): N39.0 - Urinary tract infection, site not specified; B96.29 - Other Escherichia coli [E. coli] as the cause of diseases classified elsewhere; Z16.12 - Extended spectrum beta lactamase (ESBL) resistance Status: Acute Assessment and Plan: -continue zosyn for UTI and intra-abdominal spillage (5) Diabetes: Qualifiers: Diabetes mellitus type: type 2 Diabetes mellitus terminologist insulin use: with terminologist use Diabetes mellitus complication status: with kidney complications Diabetes mellitus complication detail: with chronic kidney disease Chronic kidney disease stage: stage 4 (severe) Qualified Code(s): E11.22 - Type 2 diabetes mellitus with diabetic chronic kidney disease; N18.4 - Chronic kidney disease, stage 4 (severe); Z79.4 - intermediate (current) use of insulin Code(s): E11.9 - Type 2 diabetes mellitus without complications Status: Acute Assessment and Plan: -continue home lantus 40u Qhs -high dose sliding scale insulin -hypoglycemia protocol (6) Perforation of sigmoid colon due to diverticulitis: Code(s): K57.20 - Diverticulitis of large intestine with perforation and abscess without bleeding Status: Acute Assessment and Plan: Postop day 10 exploratory laparotomy with end colostomy -CT abdomen ordered for worsening leukocytosis -CT abdomen: No drainable abscess, interval laparotomy, possible cholelithiasis -antibiotics appear to be appropriate, will not make any changes at this time (7) COVID-19: Code(s): U07.1 - COVID-19 Status: Resolved Assessment and Plan: not hypoxic, supportive care, off isolation (8) DVT prophylaxis: Code(s): Z29.9 - Encounter for prophylactic measures, unspecified Status: Acute Assessment and Plan: Lovenox (9) CKD (chronic kidney disease) stage 3, GFR 30-59 ml/min: Qualifiers: Chronic kidney disease stage 3 subtype: unspecified whether 3a or 3b Qualified Code(s): N18.30 - Chronic kidney disease, stage 3 unspecified Code(s): N18.30 - Chronic kidney disease, stage 3 unspecified Status: Acute Assessment and Plan: -baseline creatinine 1.6-1.8 -Cr 2.2 -nephrology following -renal ultrasound was negative -echocardiogram showed grade 1 diastolic dysfunction (10) Anasarca: Code(s): R60.1 - Generalized edema Status: Acute Assessment and Plan: Likely related to decreased urine output and significant IV hydration for hypernatremia. Echocardiogram shows left ventricular systolic function normal EF 60-65%. Moderate aortic valve stenosis. Grade 1 diastolic dysfunction. Patient may benefit from more lasix. Additional Plan Diet: Tube feeds Glucerna 40cc/hr, water flush 200 cc every 4 hours DVT prophylaxis: Lovenox Code status: Full code Progn
[2020-10-31 17:28] LABS: Glucose Point of Care 255 (65-105)
[2020-10-31] MEDS: ATORVASTATIN 10 MG TABLET PO (21:28)
[2020-10-31] MEDS: INSULIN GLARGINE (*BKC) 100 UNITS/ML 40 UNITS SUB-Q (21:28)
[2020-11-01 00:04] LABS: Glucose Point of Care 199 (65-105)
[2020-11-01 00:04] LABS: Glucose Point of Care 260 (65-105)
[2020-11-01 00:38] LABS: Glucose Point of Care 221 (65-105)
[2020-11-01] MEDS: INSULIN ASPART (*BKC) 100 UNITS/ML SUB-Q ×2 (00:38→06:22)
[2020-11-01 06:00] VITALS: BP 110/30; PULSE 52; RESP 16; TEMP 36.7; O2SAT 97
[2020-11-01 06:16] LABS: Glucose Point of Care 242 (65-105)
[2020-11-01] MEDS: CENTRAL LINE FLUSH 10 ML IV PUSH ×2 (06:22→14:23)
[2020-11-01 06:25] LABS: Albumin Level 1.8 g/dL (3.5-5.1); Anion Gap 6 mmol/L (8-16); Basophils Percent Auto 0.2 % (0.2-1.2); Blood Urea Nitrogen 92 mg/dL (7-17); Calcium 7.3 mg/dL (8.4-10.2); Carbon Dioxide 22 mmol/L (22-30); Chloride 117 mmol/L (98-107); Eosinophils Absolute Auto 0.1 K/mm3 (0-0.3); Eosinophils Percent Auto 0.6 % (0-4.4); Estimated CRCL calculation 15 ml/min; Estimated Glomerular Filt Rate 17; Glucose 262 mg/dL (65-105); Hematocrit 25.5 % (37.0-47.0); Hemoglobin 7.5 g/dL (12.0-15.0); Immature Granulocyte Absolute 0.07 K/mm3 (0.00-0.031); Immature Granulocyte Percent A 0.7 % (0-0.5); Immature Platelet Fraction Pct 7.8 % (0.9-11.2); Lymphocytes Absolute Auto 0.83 K/mm3 (0.9-3.2); Lymphocytes Percent Auto 8.1 % (18.3-44.2); Mean Corpuscular HGB Conc 29.4 g/dl (32-36); Mean Corpuscular Hemoglobin 28.5 pg (26-34); Mean Platelet Volume 13.6 fl (7.4-10.4); Monocytes Absolute Auto 0.6 K/mm3 (0.1-0.6); Monocytes Percent Auto 5.8 % (2.6-8.5); Neutrophils Absolute Auto 8.6 K/mm3 (1.3-6.7); Neutrophils Percent Auto 84.6 % (45.5-73.1); Phosphorus 5.7 mg/dL (2.5-4.5); Platelet Count Result 167 k/mm3 (150-375); Potassium 4.9 mmol/L (3.4-5.0); Red Blood Count 2.63 M/mm3 (4.2-5.4); Red Cell Distribution Width 14.5 % (11.5-14.5); Sodium 145 mmol/L (137-145); White Blood Count 10.2 K/mm3 (4.5-10.0)
[2020-11-01 06:46] LABS: Total Protein Urine Random 40 mg/dL
[2020-11-01 06:56] LABS: Sodium Urine Random 5 meq/L
[2020-11-01 07:04] LABS: Large Platelets Present; Platelet Estimate Adequate (Adequate)
--- NOTE | 2020-11-01 08:54 | PM.PNNEP ---
Progress Note: A&P Assessment and Plan (1) Acute kidney injury: Onset Date: Unknown Code(s): N17.9 - Acute kidney failure, unspecified Status: Acute Assessment and Plan: The patient has acute kidney injury. Repeat urine electrolytes showed pre renal azotemia. Urinalysis shows blood and protein. Ultrasound is normal creatinine is worse today at 2.7. She has edema. She does not appear dehydrated. Consider interstitial nephritis. I talked with Dr. Lacey and will change antibiotics to a non Penicillin. she has a bladder infection but it does not look like she is toxic from this. She did have low blood pressure couple of days ago which may have stunned her kidneys. Her albumin is only 1.8. She is swollen. Possibly 3rd spacing and pre renal from that. Will give albumin for 2 days and see if this helps. (2) Edema: Code(s): R60.9 - Edema, unspecified Status: Acute Assessment and Plan: She is very swollen. She could have 3rd spacing due to infection. Her echo showed moderate aortic stenosis but good LV function. She has mild pulmonary hypertension as well. It does not look like her heart is bad enough to cause pre renal azotemia. Her albumin is below 2.0. This is probably the cause (3) CKD (chronic kidney disease) stage 3, GFR 30-59 ml/min: Qualifiers: Chronic kidney disease stage 3 subtype: unspecified whether 3a or 3b Qualified Code(s): N18.30 - Chronic kidney disease, stage 3 unspecified Code(s): N18.30 - Chronic kidney disease, stage 3 unspecified Status: Acute Assessment and Plan: The patient had a creatinine of 1.0 with a GFR of 53 in May of 2019. He has hypertension and diabetes. (4) Hypernatremia: Code(s): E87.0 - Hyperosmolality and hypernatremia Status: Acute Assessment and Plan: She was free water depleted. Sodium is now at the upper limits of normal. Water tube feeding flushes. We will keep an eye on the sodium. (5) Altered mental status: Qualifiers: Altered mental status type: stupor Qualified Code(s): R40.1 - Stupor Code(s): R41.82 - Altered mental status, unspecified Status: Acute Assessment and Plan: Etiology is unclear. Evaluation per hospitalist (6) Perforation of sigmoid colon due to diverticulitis: Code(s): K57.20 - Diverticulitis of large intestine with perforation and abscess without bleeding Status: Acute Assessment and Plan: She had surgery to repair the perforation. CT done yesterday shows no sign of abscess or perforation. Subjective Date/time seen: 11/01/20 08:54 Interval history: Patient is not interactive. She looks comfortable. Review of Systems Review of Systems: ROS unobtainable: Yes unobtainable due to medical condition Exam Narrative: Exam Narrative: WDWN in NAD skin no rash seen anywhere. head ncat lungs clear cor reg no rub or gallop abd BS+ nontender and soft ext 1-2+ edema. Objective Data Vital Signs Vital Signs: Vital Signs - 24 hr 10/31/20 14:00 10/31/20 20:00 10/31/20 22:00 Temperature 36.7 C 36.6 C Pulse Rate 62 58 L 58 L Respiratory Rate 20 22 H 22 H Blood Pressure 122/42 L 118/38 L Pulse Oximetry 96 98 98 11/01/20 06:00 Temperature 36.7 C Pulse Rate 52 L Respiratory Rate 16 Blood Pressure 110/30 L Pulse Oximetry 97 Intake/Output Intake/Output: Intake & Output 10/29/20 10/30/20 10/31/20 11/01/20 23:59 23:59 23:59 23:59 Intake Total 400 150 250 Output Total 295 306 8119 325 Balance -120 -765 -755 -325 Meds/Results Medications: Active Medications Generic Name Dose Route Start Last Admin Trade Name Freq PRN Reason Stop Dose Admin Acetaminophen 650 mg 10/24/20 13:20 10/24/20 14:20 Acetaminophen 325 Mg Tablet PO 650 mg Q4H PRN Administration Mild Pain (1-3) Atorvastatin Calcium 10 mg 10/26/20 21:00 10/31/20
[2020-11-01] MEDS: ENOXAPARIN 40 MG/0.4 ML SYRINGE SUB-Q (10:44)
[2020-11-01] MEDS: PANTOPRAZOLE SODIUM IV 40 MG VIAL IV PUSH (10:44)
[2020-11-01] MEDS: ALBUMIN HUMAN 25% 25 GM/100 ML 100 ML IVPB ×2 (10:45→14:59)
--- NOTE | 2020-11-01 11:50 | PM.PNGS ---
Progress Note: A&P Assessment and Plan (1) Perforation of sigmoid colon due to diverticulitis: Code(s): K57.20 - Diverticulitis of large intestine with perforation and abscess without bleeding Status: Acute Assessment and Plan: Tolerating TF at a rate of 40 cc/hr, will start advancing to goal per Director [employer] recommendations. Colostomy functioning well and incision looks good. CT abd/pelvis yesterday showed no abscess or perforation. WBC trending down today and patient was afebrile through the night and this morning. Continue IV antibiotics and trending labs. Activity limited due to the patient's altered mental status. (2) Altered mental status: Qualifiers: Altered mental status type: stupor Qualified Code(s): R40.1 - Stupor Code(s): R41.82 - Altered mental status, unspecified Status: Acute Assessment and Plan: Etiology unclear. Patient's mental status is not improving with correction of her hypernatremia. Discussed with the Hospitalist regarding CT brain. Management per Hospitalist. (3) Acute kidney injury: Onset Date: Unknown Code(s): N17.9 - Acute kidney failure, unspecified Status: Acute Assessment and Plan: Creatinine 2.7 today. Nephrology following and recommendations noted. (4) Hypernatremia: Code(s): E87.0 - Hyperosmolality and hypernatremia Status: Acute Assessment and Plan: Continues to improve after rehydration and free water flushes. Sodium 145 today. Management per Hospitalist. (5) Anasarca: Code(s): R60.1 - Generalized edema Status: Acute Additional Plan Discussed the patient's case and plan of care with Dr. Jennings. Subjective Subjective Date/Time Seen: 11/01/20 11:50 Post Op day: 11 Interval history: Patient still very lethargic and unable to answer questions or hold a conversation. Review of Systems Review of Systems: ROS unobtainable: Yes unobtainable due to mental status Exam Const: General: no acute distress Nutritional Appearance: obese Orientation/consciousness: patient obtunded Limitations: altered mental status Resp: Auscultation: diminished lung sounds Cardio: Rate: regular rate Rhythm: regular rhythm GI: Inspection: Abdominal wall edema, non-distended, incision (midline incision clean, dry, and theron intact. No signs of infection.) and obesity GI Palp: Yes Soft to palpation Auscultation: normal bowel sounds Other: LLQ colostomy retracted some and unable to fully assess stoma due to stool in bag, functioning well. Urinary Catheter: Urinary Catheter: patent and draining and urine clear Skin: General skin exam: pallor Neuro: General: patient obtunded and Unable to assess gait Extrem: General: edema bilateral (worse in RLE) Psych: Insight: Limited insight present (Psych) Judgement: Limited judgement present (Psych) Objective Data Vital Signs Vital Signs: Vital Signs - 24 hr 10/31/20 14:00 10/31/20 20:00 10/31/20 22:00 Temperature 98.0 F 97.8 F Pulse Rate 62 58 L 58 L Respiratory Rate 20 22 H 22 H Blood Pressure 122/42 L 118/38 L Pulse Oximetry 96 98 98 11/01/20 06:00 Temperature 98.0 F Pulse Rate 52 L Respiratory Rate 16 Blood Pressure 110/30 L Pulse Oximetry 97 Intake/Output Intake/Output: Intake & Output 10/29/20 10/30/20 10/31/20 11/01/20 23:59 23:59 23:59 23:59 Intake Total 400 150 250 0 Output Total 236 977 8931 325 Balance -120 -765 -755 -325 Meds/Results Medications: Active Medications Generic Name Dose Route Start Last Admin Trade Name Freq PRN Reason Stop Dose Admin Acetaminophen 650 mg 10/24/20 13:20 10/24/20 14:20 Acetaminophen 325 Mg Tablet PO 650 mg Q4H PRN Administration Mild Pain (1-3) Atorvastatin Calcium 10 mg 10/26/20 21:00 10/31/20 21:28 Atorvastatin 10 Mg Tablet PO 10 mg HS ALONSO Administration Carvedilol 12.5 mg 10/26/20 09:00 10/28/20 21:03 Carvedilol 12.5 Mg Tablet PO 12.5 mg
[2020-11-01 14:00] VITALS: BP 107/45; PULSE 61; RESP 20; TEMP 37.3; O2SAT 95
[2020-11-01 14:54] LABS: Glucose Point of Care 195 (65-105)
--- NOTE | 2020-11-01 15:22 | PM.IMPN ---
Progress Note: A&P Assessment and Plan (1) Oliguria: Code(s): R34 - Anuria and oliguria Status: Acute Assessment and Plan: Urine output improved. Patient appears to respond to Lasix once 40 mg. Patient still has significant peripheral edema. Blood pressure stable. Nephrology following. (2) Hypernatremia: Code(s): E87.0 - Hyperosmolality and hypernatremia Status: Acute Assessment and Plan: -Acute hypernatremia likely secondary to surgery and dehydration -Na 148, fixing free water deficit with water flushes through NG tube -PICC line in right lower extremity for blood draws -can trend sodium daily (3) Altered mental status: Qualifiers: Altered mental status type: stupor Qualified Code(s): R40.1 - Stupor Code(s): R41.82 - Altered mental status, unspecified Status: Acute Assessment and Plan: -no improvement, etiology may be metabolic or infectious, patient had complications from diverticulitis significant surgery and ICU stay (4) UTI due to extended-spectrum beta lactamase (ESBL) producing Escherichia coli: Onset Date: Unknown Code(s): N39.0 - Urinary tract infection, site not specified; B96.29 - Other Escherichia coli [E. coli] as the cause of diseases classified elsewhere; Z16.12 - Extended spectrum beta lactamase (ESBL) resistance Status: Acute Assessment and Plan: -continue zosyn for UTI and intra-abdominal spillage (5) Diabetes: Qualifiers: Chronic kidney disease stage: stage 4 (severe) Diabetes mellitus complication detail: with chronic kidney disease Diabetes mellitus complication status: with kidney complications Diabetes mellitus continuous churn buttermaker insulin use: with continuous churn buttermaker use Diabetes mellitus type: type 2 Qualified Code(s): E11.22 - Type 2 diabetes mellitus with diabetic chronic kidney disease; N18.4 - Chronic kidney disease, stage 4 (severe); Z79.4 - retirement (current) use of insulin Code(s): E11.9 - Type 2 diabetes mellitus without complications Status: Acute Assessment and Plan: -continue home lantus 40u Qhs -high dose sliding scale insulin -hypoglycemia protocol (6) Perforation of sigmoid colon due to diverticulitis: Code(s): K57.20 - Diverticulitis of large intestine with perforation and abscess without bleeding Status: Acute Assessment and Plan: Postop day 10 exploratory laparotomy with end colostomy -CT abdomen ordered for worsening leukocytosis -CT abdomen: No drainable abscess, interval laparotomy, possible cholelithiasis -antibiotics appear to be appropriate, will not make any changes at this time (7) COVID-19: Code(s): U07.1 - COVID-19 Status: Resolved Assessment and Plan: not hypoxic, supportive care, off isolation (8) DVT prophylaxis: Code(s): Z29.9 - Encounter for prophylactic measures, unspecified Status: Acute Assessment and Plan: Lovenox (9) CKD (chronic kidney disease) stage 3, GFR 30-59 ml/min: Qualifiers: Chronic kidney disease stage 3 subtype: unspecified whether 3a or 3b Qualified Code(s): N18.30 - Chronic kidney disease, stage 3 unspecified Code(s): N18.30 - Chronic kidney disease, stage 3 unspecified Status: Acute Assessment and Plan: -baseline creatinine 1.6-1.8 -Cr 2.2 -nephrology following -renal ultrasound was negative -echocardiogram showed grade 1 diastolic dysfunction (10) Anasarca: Code(s): R60.1 - Generalized edema Status: Acute Assessment and Plan: Likely related to decreased urine output and significant IV hydration for hypernatremia. Echocardiogram shows left ventricular systolic function normal EF 60-65%. Moderate aortic valve stenosis. Grade 1 diastolic dysfunction. Patient may benefit from more lasix. Additional Plan Diet: Tube feeds Glucerna 40cc/hr, water flush 200 cc every 4 hours DVT prophylaxis: Lovenox Code status: Full code Progn
--- NOTE | 2020-11-01 17:15 | PCDIET ---
Nutrition Follow-Up Complete: Inadequate oral intake related to oral intubation as evidenced by NPO status. Patient to meet estimated nutritional needs. Goal: Approaching goal. Continue goal. Pt current nutrition is Glucerna 1.2 at 50ml/hr with 200ml water flush q 4 hrs. Nutrition recommendation: Recommend advancing to goal of 65m/hr with 70ml water flush q 4hrs Last recorded weight is 84 kg (up from 82.4kg on assessment) Bowel Motility: Colostomy output Labs Reviewed: Phosphorus 5.7, Glucose 224, GFR 17, Albumin 1.8 Meds Noted:Albumin, Insulin, Zosyn, Protonix Additional Notes: Pt is currently on clear liquid diet and moderately thick level three liquids, with little to no intake (0, 5%). EN of Glucerna 1.2 at 50ml/hr providing 1320kcals over 22hrs. Due to inability to meet needs orally at this time due to refusal, recommend advancing EN to goal to 65ml/hr to provide 1716 kcals, 85g protein, and 1151ml of free water. Recommend a water flush of 70ml q 4hrs to meet remaining fluid needs. No signs of dehydration at this point. Following every t/f for EN tolerance, labs, weight.
[2020-11-01 18:16] LABS: Glucose Point of Care 181 (65-105)
--- NOTE | 2020-11-01 20:48 | PDCODEBLUE ---
Code Blue Note Code Blue Note Time Arrived at Code Blue: 220 Initial Rhythm on Arrival: Asystole Airway Management: Pt intubated during resuscitation Chest Compressions: Initiated upon arrival Result of Code Blue: Pt Cardiac Rhythm Post Code: Asystole Code Blue Summary: Patient was found unresponsive by nursing staff. A code was called. On arrival to the room the patient was in asystole with no respirations. The patient received total of 6 rounds of epinephrine and 2 amps bicarb. At each pulse check the patient remained in asystole. Patient was being bagged when I arrived to the room. I evaluated the patient's airway and found a large amount of aspirated material in the posterior oropharynx per the patient's tube feeds were stopped at the beginning of resuscitation efforts. Patient was a difficult intubation but airway was obtained. Large amount of gastric material was suctioned from the ET tube in posterior oropharynx following intubation. Airway was secured by respiratory therapy. Despite good quality CPR and medications in airway placement the patient remained in asystole after 20 minutes of resuscitation efforts the patient was pronounced at at 8:24 p.m.
--- NOTE | 2020-11-01 20:53 | WPDPROCEDUR ---
Procedures Intubation Intubation Date: 11/01/20 Intubation Time: 20:18 Consent: Performed emergently A pre-procedural Time-Out was completed immediately before starting the procedure and confirmed: Patient Identification, Site, Procedure, Patient Position and the Availability of Requisite Equipment: No Sedative: none Laryngoscope: [place] (4) ET tube size: 7 Tube secured depth (cm): 27 Tube secured location: lips Tube placement confirmation: equal breath sounds bilaterally and confirmation by capnometry Patient tolerated procedure: other (Performed during the code and the patient ) Intubation complications: difficult intubation
--- NOTE | 2020-11-01 23:26 | PC.NURSE ---
2002 PT FOUND UNRESPONSIVE WITH NO HEART TONES,PULSE OR RESP. CODE CALLED CPR STARTED.
--- NOTE | 2020-11-01 23:31 | PC.NURSE ---
9866 FEEDING TUBE, [place], JAX DRAIN AND PICK LINE REMOVED AFTER BRAILLE TEACHER NOTIFICATION, PT BATHED. COLOSTOMY REMAINS IN PLACE. PREPARED TO TAKE TO THE [place]
--- NOTE | 2020-11-02 08:27 | PM.IMPN ---
Progress Note: A&P Assessment and Plan (1) Oliguria: Code(s): R34 - Anuria and oliguria Status: Acute Assessment and Plan: Blood pressure stable. Nephrology following. albumin suggested (2) Hypernatremia: Code(s): E87.0 - Hyperosmolality and hypernatremia Status: Resolved Assessment and Plan: -Acute hypernatremia likely secondary to surgery and dehydration -Sodium corrected today at 145 (3) Altered mental status: Qualifiers: Altered mental status type: stupor Qualified Code(s): R40.1 - Stupor Code(s): R41.82 - Altered mental status, unspecified Status: Acute Assessment and Plan: -Ongoing, not improving, unknown etiology may be metabolic or infectious or neurological, Ct abdomen did not show any abscess or intraabdominal process or infection. discussed with surgery order CBC/ BMP and ct head ? stroke (4) UTI due to extended-spectrum beta lactamase (ESBL) producing Escherichia coli: Onset Date: Unknown Code(s): N39.0 - Urinary tract infection, site not specified; B96.29 - Other Escherichia coli [E. coli] as the cause of diseases classified elsewhere; Z16.12 - Extended spectrum beta lactamase (ESBL) resistance Status: Acute Assessment and Plan: -discussed with nephrology better to stop zosyn and switch to carbapenem for esbl in the urine (5) Diabetes: Qualifiers: Chronic kidney disease stage: stage 4 (severe) Diabetes mellitus complication detail: with chronic kidney disease Diabetes mellitus complication status: with kidney complications Diabetes mellitus [facility] insulin use: with intermediate card tender use Diabetes mellitus type: type 2 Qualified Code(s): E11.22 - Type 2 diabetes mellitus with diabetic chronic kidney disease; N18.4 - Chronic kidney disease, stage 4 (severe); Z79.4 - snf (current) use of insulin Code(s): E11.9 - Type 2 diabetes mellitus without complications Status: Acute Assessment and Plan: -continue home lantus -high dose sliding scale insulin -hypoglycemia protocol (6) Perforation of sigmoid colon due to diverticulitis: Code(s): K57.20 - Diverticulitis of large intestine with perforation and abscess without bleeding Status: Acute Assessment and Plan: Postop day 11 exploratory laparotomy with end colostomy -CT abdomen ordered for worsening leukocytosis -CT abdomen: No drainable abscess, interval laparotomy, possible cholelithiasis (7) COVID-19: Code(s): U07.1 - COVID-19 Status: Resolved Assessment and Plan: off isolation (8) DVT prophylaxis: Code(s): Z29.9 - Encounter for prophylactic measures, unspecified Status: Acute Assessment and Plan: Lovenox (9) CKD (chronic kidney disease) stage 3, GFR 30-59 ml/min: Qualifiers: Chronic kidney disease stage 3 subtype: unspecified whether 3a or 3b Qualified Code(s): N18.30 - Chronic kidney disease, stage 3 unspecified Code(s): N18.30 - Chronic kidney disease, stage 3 unspecified Status: Acute Assessment and Plan: -Cr 2.2 today -nephrology following discussed regarding changing abx as creat is worsening -renal ultrasound ordered was negative (10) Anasarca: Code(s): R60.1 - Generalized edema Status: Acute Assessment and Plan: Likely related to decreased urine output and significant IV hydration for hypernatremia. Echocardiogram shows left ventricular systolic function normal EF 60-65%. Moderate aortic valve stenosis. Grade 1 diastolic dysfunction. Subjective Date/time seen: CORRECTED NOTE FOR 11/01/2020 11/01/20 08:27Adri is a 85 year old female with with past history of hypertension, insulin-dependent diabetes type 2, hyperlipidemia, sigmoid colon diverticulitis with perforation Postop day exploratory laparotomy with left colectomy and end ostomy with intra-abdominal washout. Patient is on antibiotics Zosyn after diver
[2020-11-02 13:49] LABS: Kappa\\Lambda Light Chains 1.47 (0.26-1.65); Lambda Light Chain 113.2 mg/L (5.7-26.3)
[2020-11-02 14:34] LABS: Complement Total CH50 >60 U/mL (31-60)
--- NOTE | 2020-11-21 12:33 | PM.DDS ---
Discharge Sum: Prov Provider Primary care physician: Daniel Vinson MD Admitting provider: Swati Jennings MD Consults: 10/20/20 Wound/ET Consult Routine Reason for Consult:: ostomy 10/21/20 Consult to Physician Routine Comment: icu case management social worker Provider: Dyea Carey call or contact centre team leader/MD group to consult: ivan Reason for consultation: ICU management Has provider been notified: Yes 10/26/20 Consult to Physician Routine Comment: Consulting Provider: Swati Jennings call or contact centre team leader/MD group to consult: Dr. Calloway Reason for consultation: Critical sodium level Has provider been notified: Yes 10/27/20 09:38 Consult to Dietitian Routine Reason for Consult:: NG trickle feed recommedations. 10/30/20 Consult to Physician Routine Comment: consulted by Dr Calloway Consulting Provider: Yao Watson call or contact centre team leader/ group to consult: Nephrology on-call Reason for consultation: Oliguria Has provider been notified: Yes Discharge Sum: Diag Contributing Factors (1) Sepsis: (2) Perforation of sigmoid colon due to diverticulitis: (3) COVID-19: (4) Acute kidney injury: Discharge Sum: Summary Date and Time Date of admission: 10/20/20 23:58 Date of : 11/01/20 Time of : 20:24 Summary Details: Patient is an 85-year-old female with multiple medical issues that presented with intra-abdominal sepsis secondary to perforated diverticulitis. The patient was a resident at an [facility] care facility and was noted to be recently positive for COVID. As the patient was very high risk, a long discussion was had with family and decision to proceed with surgical intervention. The patient was brought to the operating room emergently and Tavo's procedure was performed. Please see full operative report for details of that procedure. Postoperatively, the patient was transferred to the ICU and ventilated. The patient was able to be extubated the following day. The patient's mental status was noted to be very altered, although she had a history of dementia. The patient was unable to really take anything p.o. and tube feeds were initiated. The patient was able to tolerate tube feeds and was having good ostomy function. An extensive workup of her continued sepsis and altered mental status ensued. On the night 11/01, the patient was found to be unresponsive. A code blue was initiated, please see the report for details of the event. Additional Data Confirmation of as documented by pronouncing clinician: no pulse, no respirations and no heart sounds Family: contacted Attending/PCP notified?: No Attending physician: Swati Jennings MD Was code activated?: Yes Autopsy requested?: No land examiner notified?: Yes Organ bank notified?: No Advance directives: Yes Hospice patient?: No
== END 2020-11-01 20:24 | disposition expired | DRG 853 ==
LOC: ANHED 21:37 → ANHICU 10-21 00:12 → ANH3MEDSUR 10-21 17:54 → ANHIMU 10-27 23:16 → ANH3MEDSUR 10-28 12:07
PROVIDERS: Family Medicine; Internal Medicine; Internal Medicine Nephrology; Nurse Practitioner Family; Student in an Organized Health Care Education/Training Program; Surgery; Admitting Provider Surgery; Emergency Provider Emergency Medicine; PCP Family Medicine; Visit Provider Surgery
PROC: (CPT 49000; principal; 2020-10-20 22:25)
DX: A41.9 Sepsis, unspecified organism (principal); U07.1 COVID-19; J96.00 Acute respiratory failure, unspecified whether with hypoxia or hypercapnia; K57.20 Diverticulitis of large intestine with perforation and abscess without bleeding; N17.9 Acute kidney failure, unspecified; N39.0 Urinary tract infection, site not specified; E87.0 Hyperosmolality and hypernatremia; Z16.12 Extended spectrum beta lactamase (ESBL) resistance; N18.4 Chronic kidney disease, stage 4 (severe); I48.91 Unspecified atrial fibrillation; E11.9 Type 2 diabetes mellitus without complications; I10 Essential (primary) hypertension; B96.20 Unspecified Escherichia coli [E. coli] as the cause of diseases classified elsewhere; E86.0 Dehydration; E11.22 Type 2 diabetes mellitus with diabetic chronic kidney disease; I12.9 Hypertensive chronic kidney disease with stage 1 through stage 4 chronic kidney disease, or unspecified chronic kidney disease; Z79.4 Long term (current) use of insulin; I46.9 Cardiac arrest, cause unspecified
CPT/HCPCS: 31500; 36415; 36569; 36600; 51701; 71045; 74176; 76775; 80048; 80053; 80069; 81001; 82375; 82550; 82570; 82805; 83050; 83540; 83550; 83690; 83735; 83880; 83883; 83930; 83935; 84100; 84156; 84300; 85025; 85027; 85055; 85652; 85999; 86038; 86160; 86162; 86334; 86335; 87077; 87086; 87088; 87186; 88307; 92610; 93306; 93970; 94002; 94003; 96361; 96365; 96375; 97110; 97161; 97530; 99285; A9270; C1751; C9113; J0131; J0171; J0610; J1650; J1815; J1940; J2250; J2270; J2405; J2543; J3010; J3480; J7030; J7050; J7070; P9047